=== PATIENT | female | born 1970 | race Caucasian/White ===

== ENCOUNTER 2023-04-15 10:07 | Outpatient (AMB) | payer MEDICARE, MEDICAID, SELFPAY ==
[2023-04-15 10:08] VITALS: BMI 34.4
--- NOTE | 2023-04-15 10:08 | MHC.PC.OV ---
Vital Signs 04/15/23 10:08 Height 6 ft 1 in Weight 261 lb BMI 34.4 Intake Visit Reasons: New Patient, Est Care Intake Note: Patient is here to establish care. Patient reports she would like a referral to some one to help her breathe better. Patient reports she was seen at [facility] about 2-3 weeks ago for the breathing concern. Patient would like a refill for Wellbutrin and Ventolin. Mds Nurse Required: No Accompanied by: Self / Same As Patient Allergies No Known Allergies Allergy (Verified 04/15/23 10:14) Tobacco use date assessed: 04/15/23 Dental Screening Dental Screen Date: 04/15/23 Did you have a dental visit in the last 12 months?: No Did you have a dental problem in the last 6 months where you did not have access to dental care?: No Was dental information given to patient?: Patient has dentist HPI New Patient, Est Care HPI Details New?patient Prior?PCP: Last?office?visit/CPE: Dr Forman Acute?issue(s): 2-3 yrs ago Recently?presented?to[facility]a?few?weeks?ago?with?agitation?alternated?with?nodding?off?and?had?complaints?of?difficulty?breathing?and?whole-body?pain. Urine was positive for cocaine but no other substances at that time. CT was Neg for PE. ED planned to admit pt but she wanted to go home. Pulm Nodules seen on CT scan in ED. SOB PMHx: Asthma, History?of?IV?drug?use,?on?methadone, hepatitis?C-treated,?cirrhosis?of?the?liver,?thrombocytopenia,?depression, PE & DVTs SurgHx: Hysterectomy, R ankle ORIF, GB, Appy. FHx: Mom: Ovarian CA. SocHx: 4 cigs/day, EtOH: none , h/o Cocaine & Opiod abuse PFSH Medical History (Updated 04/15/23 @ 11:14 by Catracho Pringle) Depression Night terrors, adult Anxiety Borderline personality disorder Asthma Cirrhosis of liver Surgical History (Updated 04/15/23 @ 10:23 by Melissa Michael [facility]) History of appendectomy History of ankle surgery History of cholecystectomy History of hysterectomy Family History (Updated 04/15/23 @ 10:24 by Melissa Michael [facility]) Mother Cancer Maternal Grandmother Cancer Maternal Aunt Cancer Social History (Updated 04/15/23 @ 10:27 by Melissa Michael [facility]) Household Members: Spouse Housing: House Alcohol intake: former Patient Tobacco Use Status: Current everyday Tobacco user Tobacco use type: Cigarette Cigarettes Per Day: 4 Years Smoked: 40 e-Cigarette/Vaping Use: Never Used Substance Use Type: Marijuana service: No Current occupational status: disabled Current occupation: Borderline personality disorder Current occupational exposures/hazards: No Sexual orientation: Unable to collect Gender identity: Unable to collect Cognitive needs: No Hearing needs: No Vision needs: Yes (wears contacts) Questionnaire PHQ-9 Over the last 2 weeks, how often have you been bothered by any of the following problems? 1. Little interest or pleasure in doing things: nearly every day 2. Feeling down, depressed, or hopeless: nearly every day 3. Trouble falling or staying asleep, or sleeping too much: nearly every day 4. Feeling tired or having little energy: nearly every day 5. Poor appetite or overeating: nearly every day 6. Feeling bad about yourself - or that you are a failure or have let yourself or your family down: nearly every day 7. Trouble concentrating on things, such as reading the newspaper or watching television: nearly every day 8. Moving or speaking so slowly that other people could have noticed. Or the opposite - being so fidgety or restless that you have been moving around a lot more than usual: nearly every day 9. Thoughts that you would be better off or of hurting yourself in some way: not at all ( No thoughts of suicide but no regard for whether or not I live. ) Total score: 24 Depression Screening Interpretation: Positive Depression Screening Follow-up: In treatment Depression Screening Done: Yes 65898 - PHQ-9 Billing: Yes Source: Developed by Drs. Martin Rubio, Larissa Figueroa, Rajan Howard and colleagues, with an educational grover from [employer]. Thrive Questionnaire Date Thrive assessed: 04/15/23 I am a: Patient What is your living situation today?: I have a steady place to live Within the past 12 months, did the food you bought not last and you didn't have the money to get more?: Never true Within the past 12 months, did you worry whether your food would run out before you got money to buy more?: Never true Do you have trouble paying for medicines?: No Do you have trouble getting transportation to medical appointments?: No Do you have trouble paying your heating and electricity bill?: No Do you have trouble taking care of your child, family member or friend?: No Do you have trouble with day-to-day activities such as bathing, preparing meals, shopping, managing finances, etc.?: No Are you currently unemployed and looking for a job?: No Are you interested in more education?: No Please select the resources that you would like help with: None Currently or been in a relationship where the following occur: no concerns reported AUDIT C Alcohol Use Questionnaire (AUDIT-C) 1. How often do you have a drink containing alcohol?: Never 3. How often do you have six or more drinks on one occasion?: Never Total Score: 0 SHILA-7 AMB Questionnaire SHILA-7 Date SHILA - 7 assessed: 04/15/23 Feeling nervous, anxious, or on edge: 3 = Nearly every day Not being able to stop or control worryin = Nearly every day Worrying too much about different things: 3 = Nearly every day Trouble relaxin = Nearly every day Being so restless that it is hard to sit still: 3 = Nearly every day Becoming easily annoyed or irritable: 3 = Nearly every day Feeling afraid as if something awful might happen: 3 = Nearly every day Total SHILA-7 score (0-4 normal; 5-9 mild; 10-14 moderate; 15-21 severe): 21 Source: Developed by Drs. Martin Rubio, Larissa Figueroa, Rajan Howard and colleagues, with an educational grover from [employer]. SHILA-7 Assessment Billing SHILA-7 Assessment Tool: SHILA-7 Assessment 32115 ACT Questionnaire In the past 4 weeks, how much of the time did your asthma keep you from getting as much done at work, school or at home?: All of the time During the past 4 weeks, how often have you had shortness of breath?: More than once a day During the past 4 weeks, how often did your asthma symptoms wake you up at night or earlier than usual in the morning?: 4 or more nights a week During the past 4 weeks, how often have you had to use your rescue inhaler or nebulizer medication?: More than 3 times per day How would you rate your asthma control during the past 4 weeks?: Not controlled at all ACT Interpretation: Positive Score: 5 Review of Systems Const Reports fatigue, Denies headache(s) and Denies weakness ENT Denies dizziness and Denies headache(s) Card Denies chest pain, Denies lightheadedness, Denies dyspnea and Denies other (Palpitations) Resp Denies cough, Denies dyspnea, Denies wheezing and Denies other ( shortness of breath) Musc Denies numbness and Denies tingling Neuro Denies dizziness, Denies headache(s), Denies numbness, Denies tingling, Denies paresthesias and Denies weakness Psych Denies anxiety and Denies depression Endo Reports fatigue Aller/Immun Denies wheezing Physical exam (Primary Care) BMI result Body Mass Index 34.4 Tobacco/Smoking Status: Tobacco use Status Tobacco use date assessed 04/15/23 04/15/23 10:35 Patient Tobacco Use Status Current everyday Tobacco 04/15/23 10:35 Tobacco use type Cigarette 04/15/23 10:35 e-Cigarette/Vaping Use Never Used 04/15/23 10:35 PHQ-9: PHQ-9 Score PHQ-9: Total score 24 04/15/23 10:50 Depression Screening Interpretation: Positive Depression Screening Follow-up: In treatment Thrive Assessment: Date of Thrive Assessment Date Thrive assessed 04/15/23 04/15/23 10:35 Currently or been in a relationship where the following occur: no concerns reported Const General: no acute distress and well developed Nutritional Appearance: well nourished Orientation/consciousness: patient oriented x3 HENMT Head: Yes normocephalic and Yes atraumatic Eyes General: appearance normal, both eyes and all related structures Pupils: Equal, round and reactive pupils present EOM: EOMs intact bilaterally Resp Other: Coarse breath sounds Effort & Inspection: normal respiratory effort Auscultation: clear to auscultation bilaterally Cardio Rate: regular rate Rhythm: regular rhythm Heart sounds: S1 normal heart sound present, S2 normal heart sound present, no gallops, no murmurs and no rubs Neuro General: patient oriented x3 and gait normal Cranial nerves: Yes Equal, round and reactive pupils present Psych Affect: normal affect Assessment and Plan Assessment & Plan (1) Shortness of breath: Code(s): R06.02 - Shortness of breath Plan: Shortness?of?breath?in?a?patient?with?numerous?pulmonary?complications?including?history?of?PE,?pulmonary?nodules,?smoking?and?asthma. Referred?to?Pulmonary?Medicine Refilled?albuterol Added?Flovent History?of?cocaine?insufflation?and?I?advised?against?this?as?this?could?exacerbate?symptoms?of?asthma (2) History of pulmonary embolism: Code(s): Z86.711 - Personal history of pulmonary embolism Plan: Recent?CT?scan?did?not?demonstrate?any?pulmonary?emboli Patient?says?she?only?discontinued?taking?Eliquis?because?she?no?longer?had?a?primary?care?physician?and?ran?out?of?medication. Will?restart?Eliquis Referred?to?pulmonology?and?also?to?Hematology-Oncology?to?discuss?whether?patient?needs?to?continue?Eliquis.??She?also?has?thrombocytopenia. (3) Pulmonary nodules: Code(s): R91.8 - Other nonspecific abnormal finding of lung field Plan: As?above,?referred?to?pulmonology Advised?she?continue?to?wean?down?smoking. (4) Fatigue: Code(s): R53.83 - Other fatigue Plan: Unclear?cause?but?likely?multifactorial. Checking?labs Will?try?to?optimize?respiratory?function (5) History of intravenous drug abuse: Code(s): F19.11 - Other psychoactive substance abuse, in remission Plan: Currently?on?methadone (6) History of hepatitis C: Code(s): Z86.19 - Personal history of other infectious and parasitic diseases Plan: History?of?hepatitis?C?which?has?been?treated She?does?have?cirrhosis?and?mild?liver?elevations Repeat?hep?C?labs?and?liver?labs. (7) Thrombocytopenia: Code(s): D69.6 - Thrombocytopenia, unspecified Plan: Check?CBC Patient?is?referred?to?Hematology-Oncology (8) Cirrhosis of liver: Comment: Per patient due to Tylenol intake, patient reports she does not drink Code(s): K74.60 - Unspecified cirrhosis of liver Plan: Patient?denies?drinking High?Tylenol?use?in?the?past?and?history?of?hepatitis-C (9) Hip pain: Code(s): M25.559 - Pain in unspecified hip Plan: Left?hip?pain Check?x-ray Start?physical?therapy May?need?referral (10) Depression: Code(s): F32.A - Depression, unspecified Plan: In?treatment?and?we?will?follow-up?with?patient (11) Smoker: Code(s): F17.200 - Nicotine dependence, unspecified, uncomplicated Plan: Encouraged?weaning?and?cessation (12) History of DVT (deep vein thrombosis): Code(s): Z86.718 - Personal history of other venous thrombosis and embolism Plan: As?above,?she?is?referred?to?Hematology-Oncology?and?I?have?resumed?her?Eliquis (13) Asthma: Code(s): J45.909 - Unspecified asthma, uncomplicated Plan: Continue?Ventolin,?start?Flovent,?quit?smoking,?referred?to?pulmonology Orders: Orders Complete Blood Count Auto Diff Today Z00.00 - Encounter for general adult medical examination without abnormal findings TSH reflex Free T4 Today Z00.00 - Encounter for general adult medical examination without abnormal findings Vitamin B12 and Folate Today E53.8 - Deficiency of other specified B group vitamins Vitamin D 25-OH Total Today E55.9 - Vitamin D deficiency, unspecified Comprehensive [place]. Panel Fast Today Z00.00 - Encounter for general adult medical examination without abnormal findings Lipid Panel Today Z00.00 - Encounter for general adult medical examination without abnormal findings Microalbumin, Random (w Creat) Today I10 - Essential (primary) hypertension UA and rflx microscopic Today Z00.00 - Encounter for general adult medical examination without abnormal findings Hepatitis B,C Profile Today Z11.3 - Encounter for screening for infections with a predominantly sexual mode of transmission T Spot TB Today Z11.1 - Encounter for screening for respiratory tuberculosis XR hip LT min 2V Today M25.559 - Pain in unspecified hip PT Evaluation and Treatment Today M25.559 - Pain in unspecified hip Referrals Pulmonary Medicine Referral F19.11 - Other psychoactive substance abuse, in remission, J45.909 - Unspecified asthma, uncomplicated, R06.02 - Shortness of breath, R91.8 - Other nonspecific abnormal finding of lung field, Z86.711 - Personal history of pulmonary embolism, Z86.718 - Personal history of other venous thrombosis and embolism Hematology & Oncology Referral D69.6 - Thrombocytopenia, unspecified, F17.200 - Nicotine dependence, unspecified, uncomplicated, Z86.711 - Personal history of pulmonary embolism, Z86.718 - Personal history of other venous thrombosis and embolism Medications: New albuterol sulfate 90 mcg/actuation (Ventolin HFA) 2 puffs inhalation Q4-6H 30 days PRN 8.5 grams 3RF shortness of breath or wheezing bupropion HCl (Wellbutrin XL) 300 mg PO QAM 30 days 30 tabs 2RF apixaban (Eliquis) 2.5 mg PO BID 90 days 180 tabs 2RF Z86.711 - Personal history of pulmonary embolism, Z86.718 - Personal history of other venous thrombosis and embolism fluticasone propionate 110 mcg/actuation (Flovent HFA) 1 puff inhalation Q12H 30 days 12 grams 3RF Coding Level of Care Code New Pt Level 4 (27416) Diagnoses Shortness of breath R06.02 History of pulmonary embolism Z86.711 Pulmonary nodules R91.8 Fatigue R53.83 History of intravenous drug abuse F19.11 History of hepatitis C Z86.19 Thrombocytopenia D69.6 Cirrhosis of liver K74.60 Hip pain M25.559 Depression F32.A Smoker F17.200 History of DVT (deep vein thrombosis) Z86.718 Asthma J45.909 Additional Codes SHILA-7 Assessment Billing - SHILA-7 Assessment Tool: SHILA-7 Assessment 26962 ([id number])
== END 2023-04-15 11:21 | disposition home or self-care (01) ==
PROVIDERS: PCP Nurse Practitioner Family; Visit Provider Family Medicine
DX: F32.A Depression, unspecified (principal); F19.11 Other psychoactive substance abuse, in remission
CPT/HCPCS: 96127; 99204

== ENCOUNTER 2024-04-09 12:18 | Outpatient (AMB) | payer MEDICARE, MEDICAID, SELFPAY ==
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
[2024-04-09 12:28] VITALS: BP 132/78; PULSE 80; RESP 20; TEMP 36.7; O2SAT 99; BMI 31.4
== END 2024-04-09 13:00 | disposition home or self-care (01) ==
PROVIDERS: PCP Nurse Practitioner Family; Visit Provider Nurse Practitioner Family
DX: F41.9 Anxiety disorder, unspecified (principal); F32.A Depression, unspecified; R53.83 Other fatigue; J45.909 Unspecified asthma, uncomplicated

== ENCOUNTER → 2024-04-09 12:18 | Outpatient (BNVA) | payer MEDICARE, MEDICAID, SELFPAY | PROVIDERS: PCP Nurse Practitioner Family; Visit Provider Nurse Practitioner Family | DX: F41.9 Anxiety disorder, unspecified (principal); F32.A Depression, unspecified; R53.83 Other fatigue; J45.909 Unspecified asthma, uncomplicated | CPT/HCPCS: 96127; 96160; 99212 ==

== ENCOUNTER 2024-04-10 14:09 | Outpatient (REF) | payer MEDICARE, MEDICAID, SELFPAY ==
[2024-04-10 18:08] LABS: Basophils Percent Auto 0.9 % (0-2); Eosinophils Absolute Auto 0.1 X10*3/uL (0.0-0.4); Eosinophils Percent Auto 3.3 % (0-4); Hematocrit 36.8 % (37.0-47.0); Hemoglobin 12.4 g/dl (12.0-16.0); Imm Gran Abs Auto 0.01 X10*3/uL (0.00-0.03); Imm Gran Pct Auto 0.5 % (0.0-0.4); Lymphocytes Absolute Auto 0.3 X10*3/uL (1.2-4.9); Lymphocytes Percent Auto 13.6 % (20-40); MANUAL DIFF FLAG SCAN; Mean Corpuscular HGB Conc 33.7 g/dl (31.0-35.0); Mean Corpuscular Hemoglobin 29.7 pg (27.0-33.0); Mean Corpuscular Volume 88.2 fL (80.0-98.0); Mean Platelet Volume 11.7 fL (9.4-12.3); Monocytes Absolute Auto 0.2 X10*3/uL (0.1-1.2); Neutrophils Absolute Auto 1.6 x10*3/uL (2.0-8.3); Neutrophils Percent Auto 74.7 % (45-73); Red Blood Count 4.17 X10*6/uL (4.20-5.50); Red Cell Distribution Width 15.1 % (11.0-16.0); SCAN SMEAR FLAG 1
[2024-04-10 18:11] LABS: Appearance Urine Clear; Color Urine Yellow; Glucose Urine UA Negative (Negative); Leukocyte Esterase Urine Trace (Negative); Nitrite Urine Negative (Negative); PH 6.5 (5.0-9.0); UMIC TRIGGER UA YES; Urine Blood Negative (Negative); Urine Ketones Negative (Negative); Urine Protein Negative (Neg-Trace)
[2024-04-10 18:16] LABS: Bacteria Urine None Seen (None Seen); Hyaline Casts Urine 0-2 /LPF (0-2); RBC Urine 0-2 /HPF (0-2); Squamous Epithelial Cell Urine 0-2 /HPF (0-2); WBC Urine 0-5 /HPF (0-5)
[2024-04-10 18:22] LABS: Alanine Aminotransferase 31 U/L (0-31); Albumin Level 3.8 g/dL (3.5-5.0); Alkaline Phosphatase 151 U/L (39-117); Anion Gap 13 (12-20); Aspartate Amino Transferase 36 U/L (5-31); Bilirubin Total 0.5 mg/dL (0.0-1.0); Blood Urea Nitrogen 11 mg/dL (9-16); Calcium 9.5 mg/dL (8.4-10.2); Carbon Dioxide 23 mmol/L (22-29); Chloride 107 mmol/L (96-108); Cholesterol 151 mg/dL (<200); Estimated Glomerular Filt Rate > 60; Glucose Fasting 98 mg/dL (60-99); HDL Cholesterol 45 mg/dL (>40); LDL Cholesterol Calculated 87 mg/dL (<100); Potassium 4.2 mmol/L (3.3-5.1); Sodium 139 mmol/L (135-145); Total Protein 7.4 g/dL (6.5-8.0); Triglycerides 98 mg/dL (<150)
[2024-04-10 18:30] LABS: Platelet Count 70 X10*3/uL (160-400); SLIDE REVIEW VERIFIED; White Blood Count 2.1 X10*3/uL (4.8-10.8)
[2024-04-10 18:41] LABS: TSH reflex Free T4 4.08 uIU/mL (0.32-4.0); Vitamin D 25-OH Total 9.6 ng/mL (>30)
[2024-04-10 18:50] LABS: Folate 7.4 ng/mL (> or = 4.0); Vitamin B12 342 pg/mL (200-900)
[2024-04-10 19:19] LABS: Creatinine Urine 48.63 mg/dL; Microalbumin Urine < 5.0 mg/L
[2024-04-11 08:10] LABS: HBS Num1 0.25 mIU/mL (0-7.99); HBc Num1 0.11 S/CO (0.00-0.79); HBsAGNum1 0.29 S/CO (0.00-0.99); Hepatitis B Core Antibody Nonreactive (Nonreactive); Hepatitis B Surface Antigen Negative (Negative); ~HepC Num1 14.71 S/CO (0.00-0.79); ~Hepatitis B Surface Antibody NONREACTIVE (Nonreactive); ~Hepatitis C Antibody Reactive (Nonreactive)
[2024-04-13 21:44] LABS: TS Negative Control Passed; TS Panel A 0; TS Panel B 0; TS Positive Control Passed; TSpotTB Negative (Negative)
== END 2024-04-10 14:10 | disposition home or self-care (01) ==
LOC: HO.WFDLDS 14:09
PROVIDERS: Visit Provider Family Medicine
DX: Z00.00 Encounter for general adult medical examination without abnormal findings (principal); E53.8 Deficiency of other specified B group vitamins; Z11.1 Encounter for screening for respiratory tuberculosis; E55.9 Vitamin D deficiency, unspecified; I10 Essential (primary) hypertension; Z11.3 Encounter for screening for infections with a predominantly sexual mode of transmission
CPT/HCPCS: 36415; 80053; 80061; 81001; 82043; 82306; 82570; 82607; 82746; 84439; 84443; 85025; 86481; 86704; 86706; 86803; 87340

== ENCOUNTER 2024-04-12 08:04 | Outpatient (AMB) | payer MEDICARE, MEDICAID, SELFPAY ==
--- NOTE | 2024-04-12 08:11 | A.OFFPC_ITS ---
Vital Signs 04/12/24 08:17 Height 6 ft 1 in Weight 242 lb 8 oz BMI 32.0 BP 120/68 Blood Pressure Location Rt brachial Position Sitting Respiration 16 Pulse 72 Pulse Source Pulse Oximeter Temp 97.8 F Temp Source Oral Pulse Oximetry (%) 97 Oxygen Delivery Method Room Air Intake Visit Reasons: follow-up labs and health maintenance Intake Note: patient here to for follow-up and health maintenance Hide Grader Required: No Is last menstrual period known: No Post menopausal: No Patient : No Allergies No Known Allergies Allergy (Verified 04/12/24 08:38) Medication List - Last Reconciled 04/12/24 by Yue Mena, BRAZE OPERATOR- albuterol sulfate 90 mcg/actuation (Ventolin HFA) 2 puffs inhalation Q4-6H PRN 30 days apixaban (Eliquis) 2.5 mg PO BID 90 days bupropion HCl XL (Wellbutrin XL) 300 mg PO QAM 30 days methadone 100 mg PO 6XD Tobacco use date assessed: 04/12/24 Dental Screening Dental Screen Date: 04/12/24 Did you have a dental visit in the last 12 months?: No Did you have a dental problem in the last 6 months where you did not have access to dental care?: No Was dental information given to patient?: Patient has dentist HPI HPI Comments History of Present Illness Details 53-year-old female with generalized anxi ety disorder, major depressive disorder, history of DVT, history of pulmonary embolism, secondary h ypercoaguable state, pulmonary nodules, cirrhosis of the liver, thrombocytopenia, history of hepatitis-C, history of IV drug abuse, borderline personality disorder, former smoker 35 pack year/hx, COPD Health Maintenance: ? Colon denies family hx of colon ca, will do cologaurd ordered today ? Mammo ordered today ? DEXA have had one, ordered today ? PAP s/p MINE ? Tdap today Flu - declined Specialists: Referred to ID today Rerred to Heme today Patient of Dr. Clark on here today for complete physical exam. Advised her to call [facility] services to vy for ADDICTION NURSE , needs help in home with ADLs Referred today for Lung Ca screening today Needs updated order for L hip xray; this is for pain; order . Renewed today. Was referred to Heme at [facility] in the past, did not make appt, interested today, new referral placed. Labs reviewed as below. Vit d def, start Vit d supplement. Mild elevation in TSH and decrease in T4, other than trouble losing weight does not have any overt sx. c/o feet feeling freezing cold all of the time, worse on the R side. No open areas. Plan Repeat tsh, t4 and vit d labs in 3 months. Tdap today Check Duplex US See additional orders below FU with PCP in about 4 weeks to f/u on chronic dz mgmt, sooner PRN This note is constructed using voice recognition software. While every effort has been made to ensure accuracy in stull installer, still errors may have been included Sometimes, these errors may affect the content or meaning of the given sentence . . An additional 20 minutes was spent add ressing the problem(s) noted at todays visit. This includes time spent before the visit reviewing the chart, time spent during the visit, and time spent after the visit on documentation [facility] Medical History (Updated 04/12/24 @ 10:02 by Yue Mena [facility]) Depression Night terrors, adult Anxiety Borderline personality disorder Asthma Cirrhosis of liver Surgical History (Updated 04/15/23 @ 10:23 by Melissa Michael [facility]) History of appendectomy History of ankle surgery History of cholecystectomy History of hysterectomy Family History (Updated 04/15/23 @ 10:24 by Melissa Michael CMA) Mother Cancer Maternal Grandmother Cancer Maternal Aunt Cancer Social History (Updated 04/15/23 @ 10:27 by Melissa Michael [facility]) Household Members: Spouse Housing: House Alcohol intake: former Patient Tobacco Use Status: Current everyday Tobacco user Tobacco use type: Cigarette Cigarettes Per Day: 4 Years Smoked: 40 e-Cigarette/Vaping Use: Never Used Substance Use Type: Marijuana service: No Current occupational status: disabled Current occupation: Borderline personality disorder Current occupational exposures/hazards: No Sexual orientation: Unable to collect Gender identity: Unable to collect Cognitive needs: No Hearing needs: No Vision needs: Yes (wears contacts) Questionnaire Thrive Questionnaire Date Thrive assessed: 04/09/24 I am a: Patient What is your living situation today?: I have a steady place to live Within the past 12 months, did the food you bought not last and you didn't have the money to get more?: Often true Within the past 12 months, did you worry whether your food would run out before you got money to buy more?: Often true Do you have trouble paying for medicines?: Yes Do you have trouble getting transportation to medical appointments?: Yes Do you have trouble paying your heating and electricity bill?: Yes Do you have trouble taking care of your child, family member or friend?: Yes Do you have trouble with day-to-day activities such as bathing, preparing meals, shopping, managing finances, etc.?: Yes Are you currently unemployed and looking for a job?: No Are you interested in more education?: No THRIVE Score: 4 SHILA-7 AMB Questionnaire SHILA-7 Date SHILA - 7 assessed: 04/09/24 Source: Developed by Drs. Martin Rubio, Larissa Figueroa, Rajan Howard and colleagues, with an educational grover from 60mo. Physical exam (Primary Care) Vital Signs: Last Vital Signs Temp 97.8 F 04/12/24 08:17 Pulse 72 04/12/24 08:17 Resp 16 04/12/24 08:17 BP 120/68 04/12/24 08:17 Pulse Ox 97 04/12/24 08:17 Oxygen Delivery Method Room Air 04/12/24 08:17 BMI result Body Mass Index 32.0 BMI Assessment/Plan discussion: High BMI High, discussed plan: lifestyle Tobacco/Smoking Status: Tobacco use Status Tobacco use date assessed 04/12/24 04/12/24 08:20 Patient Tobacco Use Status Current everyday Tobacco 04/12/24 08:12 Tobacco use type Cigarette 04/12/24 08:12 e-Cigarette/Vaping Use Never Used 04/12/24 08:12 Are you ready to quit: Yes Tobacco cessation counseling provided: Yes Items discussed: Nicotine replacement, QuitWorks and Other Relapse Prevention: discussed the importance of a supportive environment, discussed extending NRT, discussed negative mood or depression after quitting, weight gain after smoking is common and discussed dietary, exercise and/or lifestyle changes Number of minutes spent counselin CPT code: 71070 - 4-10 Minutes (recently quit 02/2024 ) Thrive Assessment: Date of Thrive Assessment Date Thrive assessed 04/09/24 04/12/24 08:12 Const Other: General: Well developed, well nourished, in no acute distress. Appears older than stated ag; chronically ill Head: Normocephalic, atraumatic. Eyes: Pupils are equal, round and reactive to light and accommodation. Conjunctivae are clear. Vision grossly normal. Ears: TMs clear AU, EACS WNL Nose: Patent, without discharge. Mouth: There are no ulcers or lesions noted. No inflammation, no post nasal drip, no plaques nor exudates. Neck: Supple, no adenopathy or thyromegaly. Lungs: Clear to auscultation bilaterally. No rales, rhonchi or wheeze noted. Good air flow in all romero. Heart: Regular rate and rhythm. No murmurs, click, rubs or gallops are noted. Abdomen: Bowel sounds present in all quadrants. The abdomen is soft, nontender, + hepatomegaly, nontender. Musculoskeletal: Slow gait, uses cane Pulses: Peripheral pulses decreased bilat, hairless lower ext, skin intact Extremities: No clubbing, cyanosis nor edema is noted. Neurologic: . Cranial Nerves 2-12 intact. Skin: No rashes, ulcers, or lesions noted. Turgor is good. Skin color is good. Hair and nails are without abnormalities. Psych: Normal eye contact, affect and mood appropriate, and normal interactions. Patient is alert and appropriate to context. Immunizations Boostrix Tdap 2.5 Lf unit-8 mcg-5 Lf/0.5 mL intramuscular syringe Performing Provider: SALLY Oliavs Performing Location: [facility] Family Medicine Administered by: Silvia Camargo RN on 04/12/24 09:08 Dose Route Admin Location Dispensed Lot Number Expiration Date [facility] Dope Pourer 0.5 mL IM Right Deltoid 0.5 mL [id number] 02/24/25 [id number] [employer] VIS Given Date VIS Provided VIS Publication Date 04/12/24 Single Vaccine 21 Eligibility Eligibility Date Funding Source Not [facility] Eligible 04/12/24 Private Results Reviewed Results Reviewed: RUN: 04/12/24 0815 PAGE 1 [facility] [address] [place] [phone] Balance Clerk: Ernesto Keenan M.D. Specimen Inquiry Name: Francisco Cuevas Age/Sex: 53/F : 1970 Unit#: [id number] Attend Dr: Ernesto Clark MD Re04/10/24 Status: DEP REF Location: [facility] Disch: SPEC : [id number] LANEY: 04/10/24 STATUS: COMP REQ : [id number] RECD: 04/10/[address] [facility] [address]: Ernesto Clark MD COMP: 04/10/24 ENTERED: 04/10/[address] [facility] [address]: ORDERED: CBC Auto Diff, SLIDE REVIEW Test Result Flag Reference WBC 2.1 L 4.8-10.8 X10*3/uL RBC 4.17 L 4.20-5.50 X10*6/uL HGB 12.4 12.0-16.0 g/dl HCT 36.8 L 37.0-47.0 % MCV 88.2 80.0-98.0 fL MCH 29.7 27.0-33.0 pg MCHC 33.7 31.0-35.0 g/dl RDW 15.1 11.0-16.0 % PLT 70 L 160-400 X10*3/uL MPV 11.7 9.4-12.3 fL Neut Pct Auto 74.7 H 45-73 % ImGran Pct Auto 0.5 H 0.0-0.4 % Lymp Pct Auto 13.6 L 20-40 % [place] Pct Auto 7.0 2-11 % Eos Pct Auto 3.3 0-4 % Baso Pct Auto 0.9 0-2 % NRBC Pct Auto 0.0 0.0-0.2 /100WBC ANC Neut Abs # 1.6 L 2.0-8.3 x10*3/uL ImGran Abs Auto 0.01 0.00-0.03 X10*3/uL Lymph Abs Auto 0.3 L 1.2-4.9 X10*3/uL [place] Abs Auto 0.2 0.1-1.2 X10*3/uL Eos Abs Auto 0.1 0.0-0.4 X10*3/uL Baso Abs Auto 0.0 0.0-0.2 X10*3/uL NRBC Abs Auto 0.000 0.0-0.012 X10*3/uL SLIDE REVIEW VERIFIED RUN: 04/12/24 0816 PAGE 1 [facility] [address] [place] [phone] Balance Clerk: Ernesto Keenan M.D. Specimen Inquiry Name: Francisco Cuevas Age/Sex: 53/F : 1970 Unit#: [id number] Attend Dr: Ernesto Clark MD Re04/10/24 Status: DEP REF Location: [facility] Disch: SPEC : [id number] LANEY: 04/10/24 STATUS: COMP REQ : [id number] RECD: 04/10/[address]: Ernesto Clark MD COMP: 04/10/24 ENTERED: 04/10/24-[address] [facility] [address]: ORDERED: CMP Fast, Lipid Panel, Vitamin D 25-OH, Free T4, TSH Rflx Test Result Flag Reference Sodium 139 135-145 mmol/L Potassium 4.2 3.3-5.1 mmol/L CL 107 96-108 mmol/L CO2 23 22-29 mmol/L Gap 13 12-20 BUN 11 9-16 mg/dL Creat 0.71 0.5-1.4 mg/dL eGFR > 60 Chronic Kidney Disease: Estimated GFR < 60 mL/min/1.73m2 Severe Kidney Disease: Estimated GFR < 15 mL/min/1.73m2 FBS 98 60-99 mg/dL CA 9.5 8.4-10.2 mg/dL Total Bili 0.5 0.0-1.0 mg/dL AST (GOT) 36 H 5-31 U/L ALT (GPT) 31 0-31 U/L Protein, Total 7.4 6.5-8.0 g/dL Alb 3.8 3.5-5.0 g/dL Triglyceride 98 <150 mg/dL Desirable Triglyceride: less than 150 mg/dL Borderline High Triglyceride 150-199 mg/dL High Triglyceride: 200-499 mg/dL Very High Triglyceride: greater than or equal to 5OO mg/dL Cholesterol 151 <200 mg/dL Desirable Cholesterol: less than 200 mg/dL Borderline High Cholesterol: 200-239 mg/dL High Cholesterol: greater than 239 mg/dL LDL Calculated 87 <100 mg/dL Desirable LDL: less than 100 mg/dL Near Optimal/Above Optimal LDL: 110-129 mg/dL Borderline High LDL: 130-159 mg/dL High LDL: 160-189 mg/dL Very High LDL: greater than or equal to 190 mg/dL HDL 45 >40 mg/dL Desirable HDL: greater than 40 mg/dL Note: This HDL assay may give artificially low results in patients with liver disease. Alk Phos 151 H 39-117 U/L Vit D 25-OH Tot 9.6 L >30 ng/mL Health Based Reference Values* < 20 ng/mL Deficient 20-30 ng/mL Insufficient > 30 ng/mL Sufficient *Nicolas SUAREZ. N Engl J Med. 2007;357:266-280 Care must be taken in interpreting Vitamin D results from different laboratories and methodologies. Published data demonstrated that results from patients undergoing hemodialysis may show a negative bias when tested with various automated 25-OH vitamin D assays when compared to LC-MS/MS. When testing samples from patients whose predominant form of Vitamin D is Vitamin D2, such as patients receiving Vitamin D2 supplementation, results that are subtherapeutic should be confirmed with another method such as LC-MS/MS. Free T4 0.70 L 0.71-1.85 ng/dL TSH 4.08 H 0.32-4.0 uIU/mL END OF REPORT RUN: 04/12/24 0816 PAGE 1 [facility] [address] [place] [phone] Balance Clerk: Ernesto Keenan M.D. Specimen Inquiry Name: Francisco Cuevas Age/Sex: 53/F : 1970 Unit#: [id number] Attend Dr: Ernesto Clark MD Re04/10/24 Status: DEP REF Location: [facility] Disch: SPEC : [id number] LANEY: 04/10/24 STATUS: COMP REQ : [id number] RECD: 04/10/[address]: Ernesto Clark MD COMP: 04/10/24 ENTERED: 04/10/[address]: ORDERED: UA and Micros Test Result Flag Reference Ur Color Yellow Ur Appear Clear PH 6.5 5.0-9.0 Ur Glu Negative Negative mg/dL Urine Blood Negative Negative Spec [place] Ur 1.010 1.005-1.025 Urine Protein Negative Neg-Trace mg/dL Urine Ketones Negative Negative mg/dL Ur Nitrite Negative Negative Ur Antonio Esterase Trace H Negative Ur RBC 0-2 0-2 /HPF Ur WBC 0-5 0-5 /HPF Ur Squam Epi 0-2 0-2 /HPF Ur Bact None Seen None Seen Ur Hyaline Senior Program Manager 0-2 0-2 /LPF END OF REPORT END OF REPORT RUN: 04/12/24 0816 PAGE 1 [facility] [address] [place] [phone] Balance Clerk: Ernesto Keenan M.D. Specimen Inquiry Name: Francisco Cuevas Age/Sex: 53/F : 1970 Unit#: [id number] Attend Dr: Ernesto Clark MD Re04/10/24 Status: DEP REF Location: [facility] Disch: SPEC : [id number] LANEY: 04/10/24 STATUS: COMP REQ : [id number] RECD: 04/10/24-[address]: Ernesto Clark MD COMP: 04/11/24 ENTERED: 04/10/24-[address]: ORDERED: HEPBC Test Result Flag Reference Anti-HBS NONREACTIVE Nonreactive Nonreactive: < 8.00 mIU/mL Anti-HBc Nonreactive Nonreactive Anti-HCV Reactive H Nonreactive Presumptive evidence of antibodies to HCV. HBsAG Negative Negative END OF REPORT Coding Level of Care Code Est Pt Level 3 (95354) Est Pt Prev Care 40-64y(72188) Diagnoses Secondary hypercoagulability disorder D68.69 Other cirrhosis of liver K74.69 Hepatic cirrhosis type: other cirrhosis Thrombocytopenia D69.6 History of intravenous drug abuse F19.11 Tobacco dependence F17.200 History of hepatitis C Z86.19 History of pulmonary embolism Z86.711 History of DVT (deep vein thrombosis) Z86.718 Left hip pain M25.552 Elevated TSH R79.89 Vitamin D deficiency E55.9 Decreased pulses in feet R09.89 Need for Tdap vaccination Z23 Influenza vaccination declined Z28.21 BMI 32.0-32.9,adult Z68.32 Class 1 obesity due to excess calories with serious comorbidity and body mass index (BMI) of 32.0 to 32.9 in adult E66.811; E66.09; Z68.32 Obesity type: due to excess calories Pulmonary nodules R91.8 Moderate episode of recurrent major depressive disorder F33.1 Major depression episode severity: moderate SHILA (generalized anxiety disorder) F41.1 Borderline personality disorder F60.3 Simple chronic bronchitis J41.0 COPD type: chronic bronchitis Chronic bronchitis type: simple Additional Codes Vital Signs *Quality* - CPT code: 42705 - 4-10 Minutes ([id number]) Assessment & Plan Assessment & Plan (1) Secondary hypercoagulability disorder: Comment: on eliquis, hx of DVT and PE Code(s): D68.69 - Other thrombophilia Category: Medical Plan: . (2) Cirrhosis of liver: Comment: Per patient due to Tylenol intake, patient reports she does not drink Code(s): K74.60 - Unspecified cirrhosis of liver Category: Medical Qualifiers: Hepatic cirrhosis type: other cirrhosis Qualified Code(s): K74.69 - Other cirrhosis of liver Plan: . (3) Thrombocytopenia: Code(s): D69.6 - Thrombocytopenia, unspecified Category: Medical Plan: . (4) History of intravenous drug abuse: Comment: in remission, on methadone Code(s): F19.11 - Other psychoactive substance abuse, in remission Category: Social Hx Plan: . (5) Tobacco dependence: Comment: recently quit 02/2024 35 pack year hx Code(s): F17.200 - Nicotine dependence, unspecified, uncomplicated Category: Medical Plan: . (6) History of hepatitis C: Code(s): Z86.19 - Personal history of other infectious and parasitic diseases Category: Medical Plan: . (7) History of pulmonary embolism: Comment: with secondary hypercoaguable state on eliquis Code(s): Z86.711 - Personal history of pulmonary embolism Category: Medical Plan: . (8) History of DVT (deep vein thrombosis): Comment: LLE with secondary hypercoaguable state on eliquis Code(s): Z86.718 - Personal history of other venous thrombosis and embolism Category: Medical Plan: . (9) Left hip pain: Code(s): M25.552 - Pain in left hip Category: Medical Plan: . (10) Elevated TSH: Code(s): R79.89 - Other specified abnormal findings of blood chemistry Category: Medical Plan: . (11) Vitamin D deficiency: Code(s): E55.9 - Vitamin D deficiency, unspecified Category: Medical Plan: . (12) Decreased pulses in feet: Comment: like PVD based on clinical exam Code(s): R09.89 - Other specified symptoms and signs involving the circulatory and respiratory systems Category: Medical Plan: . (13) Need for Tdap vaccination: Code(s): Z23 - Encounter for immunization Category: Medical Plan: . (14) Influenza vaccination declined: Code(s): Z28.21 - Immunization not carried out because of patient refusal Category: Medical (15) BMI 32.0-32.9,adult: Code(s): Z68.32 - Body mass index [BMI] 32.0-32.9, adult Category: Medical Plan: . (16) Class 1 obesity with serious comorbidity and body mass index (BMI) of 32.0 to 32.9 in adult: Comment: with cirrhosis and asthma Code(s): E66.811 - Obesity, class 1; Z68.32 - Body mass index [BMI] 32.0-32.9, adult Category: Medical Qualifiers: Obesity type: due to excess calories Qualified Code(s): E66.811 - Obesity, class 1; E66.09 - Other obesity due to excess calories; Z68.32 - Body mass index [BMI] 32.0-32.9, adult Plan: . (17) Pulmonary nodules: Code(s): R91.8 - Other nonspecific abnormal finding of lung field Category: Medical (18) MDD (major depressive disorder), recurrent episode: Code(s): F33.9 - Major depressive disorder, recurrent, unspecified Category: Medical Qualifiers: Major depression episode severity: moderate Qualified Code(s): F33.1 - Major depressive disorder, recurrent, moderate (19) SHILA (generalized anxiety disorder): Code(s): F41.1 - Generalized anxiety disorder Category: Medical (20) Borderline personality disorder: Code(s): F60.3 - Borderline personality disorder Category: Medical (21) COPD (chronic obstructive pulmonary disease): Comment: PRN SHMUEL only, controlled. Code(s): J44.9 - Chronic obstructive pulmonary disease, unspecified Category: Medical Qualifiers: COPD type: chronic bronchitis Chronic bronchitis type: simple Qualified Code(s): J41.0 - Simple chronic bronchitis Plan . Orders: Orders XR hip LT min 2V Today M25.552 - Pain in left hip TSH reflex Free T4 06/30/24 E55.9 - Vitamin D deficiency, unspecified, R79.89 - Other specified abnormal findings of blood chemistry Vitamin D 25-OH Total 06/30/24 E55.9 - Vitamin D deficiency, unspecified, R79.89 - Other specified abnormal findings of blood chemistry US venous duplex LE BI Today R09.89 - Other specified symptoms and signs involving the circulatory and respiratory systems XR DEXA axial skeleton Today Z13.820 - Encounter for screening for osteoporosis MM tomosynthesis screening BI Today Z12.31 - Encounter for screening mammogram for malignant neoplasm of breast TDaP Immunization Today Z23 - Encounter for immunization Referrals Lung Cancer Screening Referral F17.200 - Nicotine dependence, unspecified, uncomplicated Hematology & Oncology Referral D68.69 - Other thrombophilia, D69.6 - Thrombocytopenia, unspecified, Z86.711 - Personal history of pulmonary embolism, Z86.718 - Personal history of other venous thrombosis and embolism Cologuard Test Z12.11 - Encounter for screening for malignant neoplasm of colon, Z12.12 - Encounter for screening for malignant neoplasm of rectum Infectious Disease Referral F19.11 - Other psychoactive substance abuse, in remission, K74.60 - Unspecified cirrhosis of liver, Z86.19 - Personal history of other infectious and parasitic diseases Medications: New cholecalciferol (vitamin D3) 125 mcg PO DAILY 90 caps 2RF Patient Instructions: Health screenings for women You should visit your health care provider from time to time, even if you are healthy. The purpose of these visits is to: Screen for medical issues Assess your risk for future medical problems Encourage a healthy lifestyle Update vaccinations and other preventive care services Help you get to know your provider in case of an illness Information Even if you feel fine, you should still see your provider for regular checkups. These visits can help you avoid problems in the future. For example, the only way to find out if you have high blood pressure is to have it checked regularly. High blood sugar and high cholesterol levels also may not have any symptoms in the early stages. A simple blood test can check for these conditions. There are specific times when you should see your provider or receive specific health screenings. The [place] Preventive Services Task Force publishes a list of recommended screenings. Below are screening guidelines for women ages 18 to 39. BLOOD PRESSURE SCREENING Your blood pressure should be checked at least once every 3 to 5 years if: Your blood pressure is in the normal range (top number less than 120 mm Hg and bottom number less than 80 mm Hg) You don't have risk factors for high blood pressure Ask your provider if you need your blood pressure checked more often if: The top number is 120 to 129 mm Hg or the bottom number is 70 to 79 mm Hg You have diabetes, heart disease, kidney problems, are overweight, or have cer tain other health conditions You have a first-degree relative with high blood pressure You are Black You had high blood pressure during a If the top number is 130 mm Hg or greater or the bottom number is 80 mm Hg or greater, this is considered stage 1 hypertension. Schedule an appointment with your provider to learn how you can reduce your blood pressure. Watch for blood pressure screenings in your area. Ask your provider if you can stop in to have your blood pressure checked. BREAST CANCER SCREENING Experts do not agree about the benefits of breast self-exams in finding breast cancer or saving lives. Talk to your provider about what is best for you. A screening mammogram is not recommended for most women under age 40. Your provider may discuss and recommend mammograms, MRI scans, or ultrasounds if you have an increased risk for breast cancer, such as: A mother or sister who had breast cancer at a young age (most often starting screening earlier than the age the close relative was diagnosed) You carry a high-risk genetic marker CERVICAL CANCER SCREENING Cervical cancer screening should start at age 21 years unless your provider advises otherwise. After the first test: Women ages 21 through 29 should have a Pap test every 3 years. Exoprts do not agree on whether HPV testing is recommended for this age group. Women ages 30 through 65 should be screened with either a Pap test every 3 years or the HPV test every 5 years or both tests every 5 years (called cotesting ). Women who have been treated for precancer (cervical dysplasia) should continue to have Pap tests for 20 years after treatment or until age 65, whichever is longer. If you have had your uterus and cervix removed (total hysterectomy), and you have not been diagnosed with cervical cancer or precancer (high grade cervical neoplasia), you do not need cervical cancer screening. CHOLESTEROL SCREENING Cholesterol screening should begin at: Age 45 for women with no known risk factors for coronary heart disease Age 20 for women with known risk factors for coronary heart disease Repeat cholesterol screening should take place: Every 5 years for women with normal cholesterol levels More often if changes occur in lifestyle (including weight gain and diet) More often if you have diabetes, heart disease, kidney problems, or certain other conditions DIABETES SCREENING You should be screened for diabetes starting at age 35 and then repeated every 3 years if you have no risk factors for diabetes. Screening may need to start earlier and be repeated more often if you have other risk factors for diabetes, such as: You have a first degree relative with diabetes. You are overweight or have obesity. You have high blood pressure, prediabetes, or a history of heart disease. Screening for diabetes should be done if you are planning to become and you are overweight and have other risk factors such as high blood pressure. DENTAL EXAM Go to the dentist once or twice every year for an exam and cleaning. Your dentist will evaluate if you need more frequent visits. EYE EXAM Have an eye exam every 5 to 10 years before age 40. If you have vision problems, have an eye exam every 2 years or more often if recommended by your provider. You should have an eye exam that includes an examination of your retina (back of your eye) at least every year if you have diabetes. IMMUNIZATIONS Commonly needed vaccines include: Flu shot: get one every year. COVID-19 vaccine: ask your provider what is best for you. Tetanus-diphtheria and acellular pertussis (Tdap) vaccine: have one at or after age 19 as one of your tetanus-diphtheria vaccines if you did not receive it as an adolescent. Tetanus-diphtheria: have a booster (or Tdap) every 10 years. Varicella vaccine: receive 2 doses if you never had chickenpox or the varicella vaccine. Hepatitis B vaccine: receive 2, 3, or 4 doses, depending on your exact circumstances. Measles, mumps, and rubella (MMR) vaccine: receive 1 to 2 doses if you are not already immune to MMR. Your provider can tell you if you are immune. Ask your provider about the human papillomavirus (HPV) vaccine if: You have not received the HPV vaccine in the past You have not completed the full vaccine series (you should catch up on this shot) Ask your provider if you should receive other immunizations if you have certain health problems that increase your risk for some diseases such as pneumonia. INFECTIOUS DISEASE SCREENING Women who are sexually active should be screened for chlamydia and gonorrhea up until age 25. Women 25 years and older should be screened for chlamydia and gonorrhea if at high risk. Screening for hepatitis C: All adults ages 18 to 79 should get a one-time test for hepatitis C. people should be screened at every . Screening for human immunodeficiency virus (HIV): All people ages 15 to 65 should get a one-time test for HIV. Depending on your lifestyle and medical history, you may also need to be screened for infections such as syphilis and HIV, as well as other infections. PHYSICAL EXAM All adults should visit their provider from time to time, even if they are healthy. The purpose of these visits is to: Screen for disease Assess your risk of future medical problems Encourage a healthy lifestyle Update your vaccinations and other preventive care services Maintain a relationship with a provider in case of an illness Your height, weight, and BMI should be checked at every exam. During your exam, your provider may ask you about: Depression and anxiety Diet and exercise Alcohol and tobacco use Safety issues, such as using seat belts, smoke detectors, and intimate partner violence Your medicines and risk for interactions SKIN SELF-EXAM Your provider may check your skin for signs of skin cancer, especially if you're at high risk, such as if you: Have had skin cancer before Have close relatives with skin cancer Have a weakened immune system OTHER SCREENING Talk with your provider about colon cancer screening if you have a strong family history of colon cancer or polyps, or if you have had inflammatory bowel disease or polyps yourself. Routine bone density screening of women under 40 is not recommended.
[2024-04-12 08:17] VITALS: BP 120/68; PULSE 72; RESP 16; TEMP 36.6; O2SAT 97; BMI 32.0
== END 2024-04-12 09:02 | disposition home or self-care (01) ==
PROVIDERS: PCP Family Medicine; Visit Provider Nurse Practitioner Family
DX: D68.69 Other thrombophilia (principal); K74.69 Other cirrhosis of liver; D69.6 Thrombocytopenia, unspecified; F19.11 Other psychoactive substance abuse, in remission; F33.1 Major depressive disorder, recurrent, moderate; F60.3 Borderline personality disorder; J41.0 Simple chronic bronchitis; F17.200 Nicotine dependence, unspecified, uncomplicated; Z86.19 Personal history of other infectious and parasitic diseases; Z86.711 Personal history of pulmonary embolism; Z86.718 Personal history of other venous thrombosis and embolism; M25.552 Pain in left hip

== ENCOUNTER → 2024-04-12 08:04 | Outpatient (BNVA) | payer MEDICARE, MEDICAID, SELFPAY | PROVIDERS: PCP Nurse Practitioner Family; Visit Provider Nurse Practitioner Family | DX: Z23 Encounter for immunization (principal); D68.69 Other thrombophilia; K74.69 Other cirrhosis of liver; D69.6 Thrombocytopenia, unspecified; F19.11 Other psychoactive substance abuse, in remission; M25.552 Pain in left hip; E55.9 Vitamin D deficiency, unspecified; R09.89 Other specified symptoms and signs involving the circulatory and respiratory systems; F17.200 Nicotine dependence, unspecified, uncomplicated; Z71.6 Tobacco abuse counseling; Z86.718 Personal history of other venous thrombosis and embolism; Z86.711 Personal history of pulmonary embolism | CPT/HCPCS: 90471; 90715; 99212; 99396 ==

== ENCOUNTER 2024-05-31 12:01 | Outpatient (AMB) | payer MEDICARE, MEDICAID, SELFPAY ==
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
[2024-05-31 13:00] VITALS: BP 114/70; PULSE 84; RESP 16; TEMP 37.2; O2SAT 97; BMI 32.2
== END 2024-05-31 13:37 | disposition home or self-care (01) ==
PROVIDERS: PCP Nurse Practitioner Family; Visit Provider Family Medicine
DX: F60.3 Borderline personality disorder (principal); F33.1 Major depressive disorder, recurrent, moderate; F41.1 Generalized anxiety disorder; R91.8 Other nonspecific abnormal finding of lung field; Z86.19 Personal history of other infectious and parasitic diseases; M25.559 Pain in unspecified hip; R19.5 Other fecal abnormalities

== ENCOUNTER 2024-05-31 13:30 | Outpatient (REF) | payer MEDICARE, MEDICAID, SELFPAY ==
[2024-05-31 17:35] LABS: MANUAL DIFF FLAG NO
[2024-05-31 18:02] LABS: Alanine Aminotransferase 22 U/L (0-31); Albumin Level 3.9 g/dL (3.5-5.0); Alkaline Phosphatase 120 U/L (39-117); Anion Gap 11 (12-20); Aspartate Amino Transferase 36 U/L (5-31); Bilirubin Total 0.5 mg/dL (0.0-1.0); Blood Urea Nitrogen 9 mg/dL (9-16); Calcium 8.7 mg/dL (8.4-10.2); Carbon Dioxide 23 mmol/L (22-29); Chloride 108 mmol/L (96-108); Estimated Glomerular Filt Rate > 60; Glucose Random 83 mg/dL (60-115); Potassium 4.3 mmol/L (3.3-5.1); Sodium 138 mmol/L (135-145); Total Protein 7.5 g/dL (6.5-8.0)
[2024-05-31 18:05] LABS: Basophils Percent Auto 0.9 % (0-2); Eosinophils Absolute Auto 0.1 X10*3/uL (0.0-0.4); Eosinophils Percent Auto 1.9 % (0-4); Hematocrit 40.4 % (37.0-47.0); Hemoglobin 13.5 g/dl (12.0-16.0); Imm Gran Abs Auto 0.01 X10*3/uL (0.00-0.03); Imm Gran Pct Auto 0.3 % (0.0-0.4); Lymphocytes Absolute Auto 0.7 X10*3/uL (1.2-4.9); Lymphocytes Percent Auto 21.4 % (20-40); Mean Corpuscular HGB Conc 33.4 g/dl (31.0-35.0); Mean Corpuscular Hemoglobin 29.9 pg (27.0-33.0); Mean Corpuscular Volume 89.4 fL (80.0-98.0); Mean Platelet Volume 11.9 fL (9.4-12.3); Monocytes Absolute Auto 0.2 X10*3/uL (0.1-1.2); Monocytes Percent Auto 6.2 % (2-11); Neutrophils Absolute Auto 2.2 x10*3/uL (2.0-8.3); Neutrophils Percent Auto 69.3 % (45-73); Red Blood Count 4.52 X10*6/uL (4.20-5.50); Red Cell Distribution Width 15.4 % (11.0-16.0); White Blood Count 3.2 X10*3/uL (4.8-10.8)
[2024-05-31 18:06] LABS: Platelet Count 77 X10*3/uL (160-400)
[2024-05-31 18:19] LABS: Vitamin D 25-OH Total 30.9 ng/mL (>30)
== END 2024-05-31 13:31 | disposition home or self-care (01) ==
LOC: HO.WFDLDS 13:30
PROVIDERS: Visit Provider Family Medicine
DX: E55.9 Vitamin D deficiency, unspecified (principal); Z86.19 Personal history of other infectious and parasitic diseases; F60.3 Borderline personality disorder; F33.1 Major depressive disorder, recurrent, moderate; F41.1 Generalized anxiety disorder; R91.8 Other nonspecific abnormal finding of lung field; R19.5 Other fecal abnormalities
CPT/HCPCS: 36415; 80053; 82306; 85025; 96127; 99212

== ENCOUNTER 2024-07-20 11:08 | Outpatient (AMB) | payer MEDICARE, MEDICAID, SELFPAY ==
--- NOTE | 2024-07-20 11:18 | MHC.PC.OV ---
Vital Signs 07/20/24 11:26 Height 6 ft 1 in Weight 251 lb 4 oz BMI 33.1 BP 110/66 Blood Pressure Location Lt brachial Position Sitting Respiration 14 Pulse 82 Pulse Source Pulse Oximeter Temp 98.4 F Temp Source Oral Pulse Oximetry (%) 95 Oxygen Delivery Method Room Air Intake Visit Reasons: TMC /Fu chronic conditions Intake Note: tcm chonic pain in her left hip and not able to hold anything down per pt this is why she was admitted. Quality Assurance Tester Required: No Allergies No Known Allergies Allergy (Verified 07/20/24 11:25) Medication List - Last Reconciled 07/20/24 by Ernesto Clark MD albuterol sulfate 90 mcg/actuation (Ventolin HFA) 2 puffs inhalation Q4-6H PRN 30 days apixaban (Eliquis) 2.5 mg PO BID 90 days bupropion HCl XL (Wellbutrin XL) 300 mg PO QAM 30 days cholecalciferol (vitamin D3) 125 mcg PO DAILY ergocalciferol (vitamin D2) 50 mcg PO DAILY methadone 100 mg PO 6XD ondansetron 4 mg PO BID PRN 10 days prednisone 40 mg (2 x 20 mg) PO DAILY 5 days Tobacco use date assessed: 04/12/24 Dental Screening Dental Screen Date: 04/12/24 HPI TMC /Fu chronic conditions HPI Details 53 y/o female presents to f/u hospital discharge visit for altered mental status/L hip pain. Imaging including CT head without acute findings, labs unremarkable aside from being positive for cocaine. Mild hypokalemia also seen at 3.5. Has complaints of ongoing nausea. Complaints of ongoing L hip pain. TCM TCM Information Date of Discharge 07/14/24 Discharged From Other ([facility]) Interactive Contact Date (Reference documentation from this date) 07/20/24 [facility] Medical History (Updated 07/20/24 @ 12:14 by Ernesto Clark MD) History of hepatitis C Nicotine dependence, cigarettes, uncomplicated COPD (chronic obstructive pulmonary disease) Thrombocytopenia Secondary hypercoagulability disorder History of DVT (deep vein thrombosis) History of pulmonary embolism Depression Night terrors, adult Anxiety Borderline personality disorder Asthma Cirrhosis of liver Surgical History (Updated 05/17/24 @ 09:03 by Sary Jasso PA-C) History of appendectomy History of ankle surgery History of cholecystectomy History of hysterectomy Family History (Updated 04/15/23 @ 10:24 by Melissa Michael CMA) Mother Cancer Maternal Grandmother Cancer Maternal Aunt Cancer Social History (Updated 04/15/23 @ 10:27 by Melissa Michael [facility]) Household Members: Spouse Housing: House Alcohol intake: former Patient Tobacco Use Status: Current everyday Tobacco user Tobacco use type: Cigarette Cigarettes Per Day: 4 Years Smoked: 40 e-Cigarette/Vaping Use: Never Used Substance Use Type: Marijuana service: No Current occupational status: disabled Current occupation: Borderline personality disorder Current occupational exposures/hazards: No Sexual orientation: Unable to collect Gender identity: Unable to collect Cognitive needs: No Hearing needs: No Vision needs: Yes (wears contacts) Questionnaire Thrive Questionnaire Date Thrive assessed: 05/31/24 I am a: Patient What is your living situation today?: I have a steady place to live Within the past 12 months, did the food you bought not last and you didn't have the money to get more?: Sometimes True Within the past 12 months, did you worry whether your food would run out before you got money to buy more?: Sometimes True Do you have trouble paying for medicines?: No Do you have trouble getting transportation to medical appointments?: Yes Do you have trouble paying your heating and electricity bill?: Yes Do you have trouble taking care of your child, family member or friend?: Yes Do you have trouble with day-to-day activities such as bathing, preparing meals, shopping, managing finances, etc.?: Yes Are you currently unemployed and looking for a job?: No Are you interested in more education?: No THRIVE Score: 4 SHILA-7 AMB Questionnaire SHILA-7 Date SHILA - 7 assessed: 04/09/24 Source: Developed by Drs. Martin Rubio, Larissa Figueroa, Rajan Howard and colleagues, with an educational grover from [employer]. Review of Systems Const Denies chills, Reports fatigue, Denies fever(s), Denies headache(s) and Denies weakness ENT Denies dizziness and Denies headache(s) Card Denies dyspnea Resp Denies cough, Denies dyspnea, Denies wheezing and Denies other (shortness of breath) Musc Details: L hip pain Denies numbness and Denies tingling Neuro Denies dizziness, Denies headache(s), Denies numbness, Denies tingling and Denies weakness Psych Denies anxiety and Denies depression Endo Reports fatigue Aller/Immun Denies wheezing Physical exam (Primary Care) Vital Signs: Last Vital Signs Temp 98.4 F 07/20/24 11:26 Pulse 82 07/20/24 11:26 Resp 14 07/20/24 11:26 BP 110/66 07/20/24 11:26 Pulse Ox 95 07/20/24 11:26 Oxygen Delivery Method Room Air 07/20/24 11:26 BMI result Body Mass Index 33.1 Tobacco/Smoking Status: Tobacco use Status Tobacco use date assessed 04/12/24 07/20/24 11:20 Patient Tobacco Use Status Current everyday Tobacco 07/20/24 11:20 Tobacco use type Cigarette 07/20/24 11:20 e-Cigarette/Vaping Use Never Used 07/20/24 11:20 Thrive Assessment: Date of Thrive Assessment Date Thrive assessed 05/31/24 07/20/24 11:20 Const General: well developed; No acute distress Nutritional Appearance: well nourished Orientation/consciousness: patient oriented x3 [facility] Head: Yes normocephalic and Yes atraumatic Eyes General: appearance normal, both eyes and all related structures Pupils: Equal, round and reactive pupils present EOM: EOMs intact bilaterally Resp Effort & Inspection: normal respiratory effort Auscultation: clear to auscultation bilaterally Cardio Rate: regular rate Rhythm: regular rhythm Heart sounds: S1 normal heart sound present, S2 normal heart sound present, no gallops, no murmurs and no rubs Neuro General: patient oriented x3 and gait normal Cranial nerves: Yes Equal, round and reactive pupils present Psych Affect: normal affect Coding Level of Care Code Est Pt Level 4 (14781) Diagnoses Altered mental status R41.82 Left hip pain M25.552 Nausea R11.0 Substance abuse F19.10 Assessment & Plan Assessment & Plan (1) Altered mental status: Code(s): R41.82 - Altered mental status, unspecified Category: Medical Plan: She?is?back?to?baseline. Cautioned?her?regarding?illicit?substances (2) Left hip pain: Code(s): M25.552 - Pain in left hip Category: Medical Plan: Ongoing?severe?left?hip?pain?and?imaging?shows?severe?osteoarthritis Will?give?her?a?script?for?prednisone She?plans?to?start?physical?therapy I?am?referring?her?to?Ortho?as?she?would?like?to?discuss?next?steps?including?hip?replacement. (3) Nausea: Code(s): R11.0 - Nausea Category: Medical Plan: Ondansetron?helps?significantly Advised?her?to?use?only?sparingly Hydrate?well (4) Substance abuse: Code(s): F19.10 - Other psychoactive substance abuse, uncomplicated Category: Medical Plan: History?of?substance?abuse?and?recent?hospitalization?for?mental?status?alteration/intoxication. Would?advise?caution?with?controlled?substances. Orders: Referrals Orthopedics Referral M16.12 - Unilateral primary osteoarthritis, left hip, M25.552 - Pain in left hip Medications: New prednisone 40 mg (2 x 20 mg) PO DAILY 5 days 10 tabs 0RF cyclobenzaprine 5 mg PO BEDTIME 7 days PRN 7 tabs 0RF muscle spasm
[2024-07-20 11:26] VITALS: BP 110/66; PULSE 82; RESP 14; TEMP 36.9; O2SAT 95; BMI 33.1
== END 2024-07-20 12:15 | disposition home or self-care (01) ==
PROVIDERS: PCP Family Medicine; Visit Provider Family Medicine
DX: R41.82 Altered mental status, unspecified (principal); M25.552 Pain in left hip; R11.0 Nausea; F19.10 Other psychoactive substance abuse, uncomplicated

== ENCOUNTER → 2024-07-20 11:08 | Outpatient (BNVA) | payer MEDICARE, MEDICAID, SELFPAY | PROVIDERS: PCP Family Medicine; Visit Provider Family Medicine | DX: R41.82 Altered mental status, unspecified (principal); M25.552 Pain in left hip; R11.0 Nausea; F19.10 Other psychoactive substance abuse, uncomplicated | CPT/HCPCS: 99212 ==

== ENCOUNTER 2024-07-26 13:06 | Outpatient (REF) | payer MEDICARE, MEDICAID, SELFPAY ==
--- NOTE | ~2024-07-26 | XR_ITS ---
EXAMINATION: XR HIP, LEFT CLINICAL INFORMATION: M25.552 - Pain in left hip COMPARISON: None available. TECHNIQUE: Two views of the left hip. FINDINGS: No fracture or gross dislocation. End-stage arthropathy the left hip joint, with [id number] appearance, productive marginal osteophytes, subchondral irregularity and sclerosis of the superior femoral head and associated acetabulum. There are prominent subcapital osteophytes. Remainder the pelvis and proximal femur appear normal. The left SI joint is normal. There are 2 surgical clips overlying the left sacral wing. Soft tissues otherwise appear normal. XR/XR hip LT min 2V IMPRESSION: End-stage arthropathy left hip joint with [id number] appearance. There is some degree of subchondral irregularity/collapse with sclerosis of the superior articular femoral head. Electronically signed by: Glynn Busch MD 07/26/2024 03:30 PM [facility]
--- NOTE | ~2024-07-26 | US_ITS ---
EXAMINATION: Noninvasive assessment of the bilateral lower extremities with ARTERIAL DUPLEX, ANKLE BRACHIAL INDICES (ABIs), and PULSE VOLUME RECORDINGS (PVRs). CLINICAL INFORMATION: Other specified symptoms and signs involving the circulation. TECHNIQUE: Duplex Doppler techniques with waveform analysis and measurement of velocities in the bilateral common femoral, profunda femoris, superficial femoral, popliteal and tibial arteries were performed. Additionally, ankle pulse volume recordings, ankle pressure measurements and ankle brachial indices were obtained of the lower extremity arterial system bilaterally. The study was performed only at rest. COMPARISON: None FINDINGS: DIRECT DUPLEX DOPPLER FINDINGS: RIGHT LEG: Common femoral artery: 140 cm/s, phasicity: Triphasic. Profunda femoris artery: 71 cm/s, phasicity: Triphasic. Spectral broadening. Superficial femoral artery (proximal): 114 cm/s, phasicity: Triphasic. Superficial femoral artery (mid): 97 cm/s, phasicity: Triphasic. Superficial femoral artery (distal): 100 cm/s, phasicity: Triphasic. Popliteal artery: 62 cm/s, phasicity: Triphasic. Posterior tibial artery: 82 cm/s, phasicity: Triphasic. Spectral broadening. Peroneal artery: 41 cm/s, phasicity: Triphasic. Anterior tibial artery: 55 cm/s, phasicity: Triphasic. Dorsalis pedis artery: 18 cm/s, phasicity:Biphasic. Spectral broadening and reversal flow. LEFT LEG: Common femoral artery: 212 cm/s, phasicity: Triphasic. Spectral broadening. Profunda femoris artery: 105 cm/s, phasicity: Biphasic. Spectral broadening. Superficial femoral artery (proximal): 98 cm/s, phasicity: Triphasic. Spectral broadening. Superficial femoral artery (mid): 97 cm/s, phasicity: Triphasic. Superficial femoral artery (distal): 96 cm/s, phasicity: Triphasic. Popliteal artery: 69 cm/s, phasicity: Triphasic. Posterior tibial artery: 108 cm/s, phasicity: Triphasic. Peroneal artery: 18 cm/s, phasicity: Monophasic. Anterior tibial artery: 55 cm/s, phasicity: Biphasic. Dorsalis pedis artery: 33 cm/s, phasicity: Monophasic and reversal with spectral broadening. BRACHIAL PRESSURES: Right: Diseased arteries below the knee involving mostly dorsalis pedis artery. Left: Diseased arteries below the knee involving mostly the dorsalis pedis artery. Electronically signed by: Ryley Cha MD 07/26/2024 03:43 PM CAREY RP
== END 2024-07-26 13:07 | disposition home or self-care (01) ==
LOC: HO.US 13:06
PROVIDERS: PCP Family Medicine; Visit Provider Nurse Practitioner Family
DX: I73.9 Peripheral vascular disease, unspecified (principal); R09.89 Other specified symptoms and signs involving the circulatory and respiratory systems; M25.552 Pain in left hip
CPT/HCPCS: 73502; 93925

== ENCOUNTER → 2024-07-26 13:15 | Outpatient (BNV) | payer MEDICARE, MEDICAID, SELFPAY | PROVIDERS: PCP Family Medicine; Visit Provider Radiology Diagnostic Radiology | DX: I73.9 Peripheral vascular disease, unspecified (principal); M16.12 Unilateral primary osteoarthritis, left hip | CPT/HCPCS: 73502; 93925 ==

== ENCOUNTER 2024-07-27 10:03 | Outpatient (AMB) | payer MEDICARE, MEDICAID, SELFPAY ==
--- NOTE | 2024-07-27 07:47 | MHC.OFFVIS ---
Intake Visit Reasons: former smoker Allergies No Known Allergies Allergy (Verified 07/20/24 11:25) HPI HPI former smoker: Details: Initial visit for this 53yo former smoker with a 40PYH. Patient started smoking at age 12 for 41 years at 1ppd. She quit 02/2024. . / Denies marijuana use. Denies second hand smoke exposure. Denies exposure to chemicals or substances like asbestos. . Denies known family history of lung cancer. Denies personal history of cancers. Denies chest CT in last year. . Denies recent travel outside the [place]. Denies recent respiratory illness or recent hospitalization for respiratory issues. Reports testing positive for COVID. Denies receiving COVID Vaccine. . Denies fever, chills, new/worsening cough, hemoptysis, hoarseness or dysphagia. Denies significant chest pain, significant dyspnea or unintentional weight loss. Patient Lung Cancer Screening Questionnaire reviewed with patient by provider. . Shared Decision Making Completed. Patient meets criteria. Discussed in detail with patient, the risk vs benefit of LDCT screening. Patient consents to proceed with scan. Discussed and encouraged continued smoking cessation. [facility] Medical History (Updated 07/27/24 @ 10:15 by Sary Jasso PA-C) Personal history of nicotine dependence History of hepatitis C Cirrhosis of liver History of DVT (deep vein thrombosis) History of pulmonary embolism Secondary hypercoagulability disorder COPD (chronic obstructive pulmonary disease) Asthma Thrombocytopenia Borderline personality disorder Depression Anxiety Night terrors, adult Surgical History (Updated 05/17/24 @ 09:03 by Sary Jasso PA-C) History of appendectomy History of ankle surgery History of cholecystectomy History of hysterectomy Family History (Updated 04/15/23 @ 10:24 by Melissa Michael [facility]) Mother Cancer Maternal Grandmother Cancer Maternal Aunt Cancer Social History (Updated 07/27/24 @ 10:16 by Sary Jasso PA-C) Household Members: Spouse Housing: House Alcohol intake: former Patient Tobacco Use Status: Former Tobacco user Tobacco use type: Cigarette Years Smoked: (onset 12yo, 1ppd x 41yrs, 40pyh - quit 02/2024) e-Cigarette/Vaping Use: Never Used Substance Use Type: Marijuana service: No Current occupational status: disabled Current occupation: Borderline personality disorder Current occupational exposures/hazards: No Sexual orientation: Unable to collect Gender identity: Unable to collect Cognitive needs: No Hearing needs: No Vision needs: Yes (wears contacts) Assessment & Plan Assessment & Plan (1) Personal history of nicotine dependence: Comment: (onset 12yo, 1ppd x 41yrs, 40pyh - quit 02/2024) Code(s): Z87.891 - Personal history of nicotine dependence Category: Medical Plan: - SDM visit completed today in office. - Patient meets criteria for LDCT for lung cancer screening purposes and is asymptomatic. - Smoking cessation counseling offered. Patients can always call [phone]. - Will arrange for a LDCT scan of the chest for screening purposes at [facility]. - Risks, benefits, and alternatives were discussed in detail and the patient agrees to proceed. - Risks discussed include but are not limited to: radiation exposure, anxiety during testing and while awaiting results, false negatives, false positives and possibility of additional intervention such as further imaging or surgical procedures for benign disease. - Benefits are obviously detection of lung cancer at an early stage which can lead to improved outcomes. - Discussed the importance of screening program compliance with adherence to yearly LDCT scan as scheduled - or sooner interval scans for personalized screening regimen. - Discussed follow up plan. Our office will send a letter discussing results and if needed set up phone call and office visit based on CT findings. - Patient educated on results categorization and the management decisions for suspicious findings potentially found on the screening LDCT scan. Any patient with a Lung RADS score of 3 or 4 will be reviewed by a multidisciplinary team at [facility] to form a plan of action in regards to scan findings. - If further work up is warranted for a suspicious lung finding this will be followed by the Lung Cancer Screening program in conjunction with the Thoracic Surgery Department at [facility]. - A copy of the office note and LDCT will be sent to the patient's PCP - as well as documentation on any associated further plans of care. - Incidental findings on LDCT are the PCP's responsibility. These findings are indicated with an S finding on the LDCT Assessment. A note discussing the findings will be sent to the PCP who is then responsible for further management. - All questions answered.? Coding Level of Care Code Lung Cancer Screening G0296 Diagnoses Personal history of nicotine dependence Z87.891
== END 2024-07-27 10:41 | disposition home or self-care (01) ==
PROVIDERS: PCP Family Medicine; Visit Provider Physician Assistant Medical
DX: Z87.891 Personal history of nicotine dependence (principal)
CPT/HCPCS: G0296

== ENCOUNTER 2024-07-27 10:16 | Outpatient (REF) | payer MEDICARE, MEDICAID, SELFPAY ==
--- NOTE | ~2024-07-27 | CT_ITS ---
CLINICAL HISTORY: F17.210 - Nicotine dependence, cigarettes, uncomplicated CT lung cancer screening (LDCT) Comparison: None Technique: Axial CT images of the chest using low-dose technique. Referring provider counseled the patient on shared decision-making for LDCT screening. Additional counseling was provided on smoking cessation. Effective radiation dose total: DLP 78.7 mGycm, CTDIvol 2.3 mGy. Findings: Pulmonary nodules: 2 mm lingular nodule, axial 79. Ill-defined, somewhat angular nodular density at the right lung base measuring up to 4 mm on axial 102. Incidental pulmonary findings: Faint tree-in-bud densities within the left lower lobe, axial 116-126. Regions of reticular prominence and ground-glass density anteriorly within the upper lobes bilaterally. Regions of scarring and/or atelectasis are noted. Non pulmonary findings: Coronary artery calcifications: None Limited upper abdomen: The spleen appears mildly enlarged. Other: None Impression: LungRADS 2 - Benign Appearance: Continue annual screening with low dose Chest CT in 12 months. No comparison studies. Category 1: Normal; continue annual screening Category 2: Benign appearance or behavior, continue annual screening Category 3: Probably benign, [address] recommended Category 4A: Suspicious, [address] recommended; may consider PET/CT Category 4B: Suspicious, Additional diagnostics and/or tissue sampling recommended Category 4X: Suspicious, Additional diagnostics and/or tissue sampling recommended Category 0: Recalls (incomplete screen due to Incomplete coverage, Noise, Respiratory motion, Expiration, Obscured by acute abnormality) This document has been electronically signed by: David Koehler MD on 07/27/2024 13:04:18
== END 2024-07-27 10:17 | disposition home or self-care (01) ==
LOC: HO.CT 10:16
PROVIDERS: PCP Family Medicine; Visit Provider Physician Assistant Medical
DX: Z12.2 Encounter for screening for malignant neoplasm of respiratory organs (principal); F17.210 Nicotine dependence, cigarettes, uncomplicated
CPT/HCPCS: 71271; G0296

== ENCOUNTER → 2024-07-27 10:17 | Outpatient (BNV) | payer MEDICARE, MEDICAID, SELFPAY | PROVIDERS: PCP Family Medicine; Visit Provider Radiology Vascular & Interventional Radiology | DX: F17.210 Nicotine dependence, cigarettes, uncomplicated (principal) | CPT/HCPCS: 71271 ==

== ENCOUNTER 2024-09-10 12:28 | Outpatient (REF) | payer MEDICARE, MEDICAID, SELFPAY ==
--- NOTE | ~2024-09-10 | XR_ITS ---
EXAMINATION: XR PELVIS 1-2 VIEWS HISTORY: M25.559 - Pain in unspecified hip COMPARISON: Correlation is made with plain films of the left hip dated 07/26/2024. FINDINGS: Two AP views of the pelvis are submitted. Osseous mineralization is normal. There is no fracture or dislocation. Again seen is severe osteoarthritis of the left hip, with joint space narrowing and osteophyte formation. The right hip joint space is maintained. The sacroiliac joint spaces are preserved. There are phleboliths in the pelvis. XR/XR pelvis 1-2V IMPRESSION: Severe osteoarthritis of the left hip. Electronically signed by: Martin Solitario MD 09/11/2024 06:58 AM EDT
== END 2024-09-10 12:29 | disposition home or self-care (01) ==
LOC: HO.HOSX 12:28
PROVIDERS: Visit Provider Orthopaedic Surgery
DX: M25.559 Pain in unspecified hip (principal); M16.12 Unilateral primary osteoarthritis, left hip
CPT/HCPCS: 72170; 99202

== ENCOUNTER 2024-09-10 12:55 | Outpatient (AMB) | payer MEDICARE, MEDICAID, SELFPAY ==
--- NOTE | 2024-09-10 13:04 | A.OFFVIS_ITS ---
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 Patient reports that she has been having progressively worsening pain for the last two years now. She reports no previous treatments. Her pain is felt in the groin and around the lateral aspect for the hip. She states that she has a clogged femoral artery - She is unsure if she has appointment with vascular for this. She is taking Tylenol, about 2,000mg BID- she also has liver disease. 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 She has had hip pain now for several years and has been pushing through it but can no longer function comfortably. She has a remote history of IV drug use in his been on methadone for proximally 5 years. She states she is stable on methadone and that is not and has not been an issue for some time with her. She had undiagnosed hepatitis-C in his his lead to some moderate cirrhosis of her liver. She also has a history of pulmonary embolisms with a coagulopathy of unknown etiology. She is on Eliquis. Her primary complaint today is unbearable left hip pain. [facility]LY [facility], [facility]1983 Medical History (Updated 07/27/24 @ 10:15 by Sary Jasso PA-C) Personal history of nicotine dependence History of hepatitis C Cirrhosis of liver History of DVT (deep vein thrombosis) History of pulmonary embolism Secondary hypercoagulability disorder COPD (chronic obstructive pulmonary disease) Asthma Thrombocytopenia Borderline personality disorder Depression Anxiety Night terrors, adult Surgical History (Updated 05/17/24 @ 09:03 by Sary Jasso PA-C) History of appendectomy History of ankle surgery History of cholecystectomy History of hysterectomy Family History (Updated 04/15/23 @ 10:24 by Melissa Michael [facility]) Mother Cancer Maternal Grandmother Cancer Maternal Aunt Cancer Social History (Updated 07/27/24 @ 10:16 by Sary Jasso PA-C) Household Members: Spouse Housing: House Alcohol intake: former Patient Tobacco Use Status: Former Tobacco user Tobacco use type: Cigarette Years Smoked: (onset 12yo, 1ppd x 41yrs, 40pyh - quit 02/2024) e-Cigarette/Vaping Use: Never Used Substance Use Type: Marijuana service: No Current occupational status: disabled Current occupation: Borderline personality disorder Current occupational exposures/hazards: No Sexual orientation: Unable to collect Gender identity: Unable to collect Cognitive needs: No Hearing needs: No Vision needs: Yes (wears contacts) Physical Exam Vital Signs: BMI result Body Mass Index 33.1 Extrem Other: Severe gait antalgia left hip Positive impingement test Results Reviewed Results Reviewed: I personally reviewed relevant radiographs. Severe left hip osteoarthritis with proximal migration of the femoral head and lateral subluxation Assessment & Plan Assessment & Plan (1) Osteoarthritis of left hip: Code(s): M16.12 - Unilateral primary osteoarthritis, left hip Category: Medical Plan: This is a very pleasant 53-year-old woman with a complicated medical history. She is severely debilitated by her severe left hip arthritis and she needs a replacement. There are some challenges with progressing forward the most obvious 1 of those is a history of PE with a questionable vascular status and a history of liver cirrhosis. Her albumin was borderline low with a normal total protein when she presented to the emergency room at [facility] for altered mental status. She also is a cigarette smoker in trying to quit. I had a long discussion with her regarding her medical comorbidities and I would like to proceed forward with surgery but slowly and with the appropriate medical clearance. I discussed the risk of complications in the risk of infection specifically I do think she would benefit from a seated walker and we will begin the preoperative clearance process. She understands that if she is deemed high risk that we may not be able to proceed with her surgery at our institution in addition we have talked about her illicit drug use which she states she does not do although there is a positive cocaine test from several months back. She states this was a 1 time thing that was done with friends socializing and was done predominantly for pain. She denies any IV drug use and states this was something that has not happened in years and will not happen again. (2) Nicotine dependence, cigarettes, uncomplicated: Comment: (35PYH, quit 02/2024) Code(s): F17.210 - Nicotine dependence, cigarettes, uncomplicated Category: Medical Plan: Has quit a long history of heavy use (3) COPD (chronic obstructive pulmonary disease): Comment: PRN SHMUEL only, controlled. Code(s): J44.9 - Chronic obstructive pulmonary disease, unspecified Category: Medical Qualifiers: COPD type: chronic bronchitis Chronic bronchitis type: simple Qualified Code(s): J41.0 - Simple chronic bronchitis Plan: Controlled (4) Secondary hypercoagulability disorder: Comment: on eliquis, hx of DVT and PE Code(s): D68.69 - Other thrombophilia Category: Medical Plan: Unknown etiology. Some vascular studies suggest vasculopathy of the lower legs. (5) Cirrhosis of liver: Comment: Per patient due to Tylenol intake, patient reports she does not drink Code(s): K74.60 - Unspecified cirrhosis of liver Category: Medical Qualifiers: Hepatic cirrhosis type: other cirrhosis Qualified Code(s): K74.69 - Other cirrhosis of liver Plan: Normal total protein and albumin borderline low. We will need clearance prior to surgery. Orders: Orders XR pelvis 1-2V Today M25.559 - Pain in unspecified hip Coding Level of Care Code New Pt Level 4 (11977) Diagnoses Osteoarthritis of left hip M16.12 Nicotine dependence, cigarettes, uncomplicated F17.210 Simple chronic bronchitis J41.0 COPD type: chronic bronchitis Chronic bronchitis type: simple Secondary hypercoagulability disorder D68.69 Other cirrhosis of liver K74.69 Hepatic cirrhosis type: other cirrhosis
[2024-09-10 13:05] VITALS: BMI 33.1
== END 2024-09-10 13:54 | disposition home or self-care (01) ==
LOC: HO.HOS 12:55
PROVIDERS: PCP Family Medicine; Visit Provider Orthopaedic Surgery
DX: M16.12 Unilateral primary osteoarthritis, left hip (principal); F17.210 Nicotine dependence, cigarettes, uncomplicated; J41.0 Simple chronic bronchitis; D68.69 Other thrombophilia; K74.69 Other cirrhosis of liver
CPT/HCPCS: 99204

== ENCOUNTER → 2024-09-10 12:58 | Outpatient (BNV) | payer MEDICARE, MEDICAID, SELFPAY | PROVIDERS: Visit Provider Radiology Diagnostic Radiology | DX: M16.12 Unilateral primary osteoarthritis, left hip (principal) | CPT/HCPCS: 72170 ==

== ENCOUNTER 2024-09-13 15:01 | Outpatient (AMB) | payer MEDICARE, MEDICAID, SELFPAY ==
[2024-09-13 15:07] VITALS: BMI 33.1
--- NOTE | 2024-09-13 15:07 | A.OFFVIS_ITS ---
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 She has a significant history of deep vein thrombosis and recognized history of pulmonary embolism following a period of immobility attributed previously to liver disease-related health decline. Her existing comorbidities include Hepatitis C-induced moderate cirrhosis and a background of intravenous drug abuse, currently managed with methadone. No current symptoms of clotting disorder beyond a low platelet count have been disclosed. Last platelet count was 77 she now presents for vascular evaluation [facility] Medical History (Updated 09/13/24 @ 16:04 by Raymond Khanna MD) PAD (peripheral artery disease) Personal history of nicotine dependence History of hepatitis C Cirrhosis of liver History of DVT (deep vein thrombosis) History of pulmonary embolism Secondary hypercoagulability disorder COPD (chronic obstructive pulmonary disease) Asthma Thrombocytopenia Borderline personality disorder Depression Anxiety Night terrors, adult Surgical History History of appendectomy History of ankle surgery History of cholecystectomy History of hysterectomy Family History Mother Cancer Maternal Grandmother Cancer Maternal Aunt Cancer Social History Household Members: Spouse Housing: House Alcohol intake: former Patient Tobacco Use Status: Former Tobacco user Tobacco use type: Cigarette Years Smoked: (onset 12yo, 1ppd x 41yrs, 40pyh - quit 02/2024) e-Cigarette/Vaping Use: Never Used Substance Use Type: Marijuana service: No Current occupational status: disabled Current occupation: Borderline personality disorder Current occupational exposures/hazards: No Sexual orientation: Unable to collect Gender identity: Unable to collect Cognitive needs: No Hearing needs: No Vision needs: Yes (wears contacts) Review of Systems Const All systems reviewed & are unremarkable except as noted in HPI and below Reports no additional complaints ENT Reports Normal hearing present Card Denies chest pain, Denies chest pain at rest, Denies chest pain with activity and Denies pedal edema Resp Denies cough GI Denies abdominal pain Musc Denies abnormal gait, Denies muscle cramps and Denies radiating pain into limb Skin/Breast Denies skin ulcer and Denies wounds Neuro Reports Normal hearing present and Denies abnormal gait Psych Reports no additional complaints Physical Exam Vital Signs: BMI result Body Mass Index 33.1 Const General: cooperative, healthy appearing and comfortable Orientation/consciousness: oriented to person, oriented to place and oriented to time HEENT Head: Yes normal to inspection Neck Neck: Yes normal visual inspection Carotids: no bruits Chest Chest palpation & inspection: normal inspection of the chest Resp Effort & Inspection: normal respiratory effort and able to speak in complete sentences Auscultation: clear to auscultation bilaterally, no crackles, no rales, no rhonchi and no wheezes Cardio Rate: regular rate Rhythm: regular rhythm Heart sounds: S1 normal heart sound present and S2 normal heart sound present Bruits: no carotid bruits Peripheral pulses: Peripheral pulses 2+ throughout GI Inspection: Yes normal to inspection Skin Wounds: no wounds Hair: normal Neuro General: oriented to person, oriented to place and oriented to time Cranial nerves: Yes CN's II-XII intact bilaterally and Yes Normal hearing present Cognition (Neuro): normal cognition Motor exam (neuro): 5/5 motor strength present throughout Extrem Other: venous exam: No significant superficial varicosities or spider telangiectasias, minimal edema General: No clubbing, No cyanosis and No edema Psych Appearance: grossly normal Mental Status: mental status grossly normal Speech and movement: Normal speech and movement present Assessment & Plan Assessment & Plan (1) History of DVT (deep vein thrombosis): Comment: LLE with secondary hypercoaguable state on eliquis Code(s): Z86.718 - Personal history of other venous thrombosis and embolism Category: Medical Plan: In short patient will require inferior vena cava filter placement. This has been discussed in detail with the patient along with risks, benefits, and complications. This includes but is not limited to bleeding, infection, heart attack, need for emergent surgical repair, limb ischemia, blood vessel damage, bleeding, puncture, kidney injury, bruising, allergic reaction, and skin reaction. The patient demonstrates a clear understanding. We will schedule for the next appropriate time. Thank you for allowing us to assist in this patient's care. (2) History of pulmonary embolism: Comment: with secondary hypercoaguable state on eliquis Code(s): Z86.711 - Personal history of pulmonary embolism Category: Medical Plan: See above Coding Level of Care Code New Pt Level 4 (51257) Complex EM visit Add On G2211 Diagnoses History of DVT (deep vein thrombosis) Z86.718 History of pulmonary embolism Z86.711
== END 2024-09-13 15:40 | disposition home or self-care (01) ==
LOC: HO.HVS 15:02
PROVIDERS: Visit Provider Surgery Vascular Surgery
DX: Z86.718 Personal history of other venous thrombosis and embolism (principal); Z86.711 Personal history of pulmonary embolism
CPT/HCPCS: 99204; G2211

== ENCOUNTER → 2024-09-13 15:01 | Outpatient (BNVA) | payer MEDICARE, MEDICAID, SELFPAY | PROVIDERS: Visit Provider Surgery Vascular Surgery | DX: Z86.718 Personal history of other venous thrombosis and embolism (principal); Z86.711 Personal history of pulmonary embolism | CPT/HCPCS: 99202 ==

== ENCOUNTER 2024-10-04 10:41 | Outpatient (AMB) | payer MEDICARE, MEDICAID, SELFPAY ==
--- NOTE | 2024-10-04 10:43 | A.OFFPC_ITS ---
Vital Signs 10/04/24 10:53 Height 6 ft 1 in Weight 263 lb 6 oz BMI 34.7 BP 122/64 Blood Pressure Location Lt brachial Position Sitting Respiration 14 Pulse 91 Pulse Source Pulse Oximeter Temp 98.6 F Temp Source Oral Pulse Oximetry (%) 97 Oxygen Delivery Method Room Air Intake Visit Reasons: Discharged from [facility] on 09/27 Intake Note: patient Scheduled for ED discharge follow-up to review any new or preexisting condition going on. Patient also said she will like to change eliquis and is starting to have side effect as such as dry mouth, breathing. Is last menstrual period known: No Post menopausal: No Patient : No Allergies No Known Allergies Allergy (Verified 10/04/24 10:47) Medication List - Last Reconciled 10/04/24 by Ernesto Clark MD albuterol sulfate 90 mcg/actuation (Ventolin HFA) 2 puffs inhalation Q4-6H PRN 30 days apixaban (Eliquis) 2.5 mg PO BID 90 days bupropion HCl XL (Wellbutrin XL) 300 mg PO QAM 30 days cholecalciferol (vitamin D3) 125 mcg PO DAILY ergocalciferol (vitamin D2) 50 mcg PO DAILY levothyroxine 50 mcg PO DAILY 30 days methadone 100 mg PO 6XD rivaroxaban 10 mg PO DAILY 90 days [Seated walker As directed] Tobacco use date assessed: 10/04/24 Dental Screening Dental Screen Date: 10/04/24 Did you have a dental visit in the last 12 months?: Yes Did you have a dental problem in the last 6 months where you did not have access to dental care?: No Was dental information given to patient?: No HPI Discharged from [facility] on 09/27 HPI Details 53 y/o female presents to [facility] [place] ischarge visit after a fall. Had reported significant pain of L hip. Imaging had revealed no fractures or acute injuries. L hip pain and pt already had hx of osteoarthritis of L hip. She is on gabapentin and flexeril. She is followed by orthopedics and plan is to perform a L hip replacement. Hx of DVT. Had been following up with vascular. She would like to switch from eliquis to xarelto. [facility] Medical History (Updated 10/04/24 @ 11:13 by Catracho Pringle) PAD (peripheral artery disease) Personal history of nicotine dependence History of hepatitis C Cirrhosis of liver History of DVT (deep vein thrombosis) History of pulmonary embolism Secondary hypercoagulability disorder COPD (chronic obstructive pulmonary disease) Asthma Thrombocytopenia Borderline personality disorder Depression Anxiety Night terrors, adult Surgical History History of appendectomy History of ankle surgery History of cholecystectomy History of hysterectomy Family History Mother Cancer Maternal Grandmother Cancer Maternal Aunt Cancer Social History Household Members: Spouse Housing: House Alcohol intake: former Patient Tobacco Use Status: Former Tobacco user Tobacco use type: Cigarette Years Smoked: (onset 12yo, 1ppd x 41yrs, 40pyh - quit 02/2024) e-Cigarette/Vaping Use: Never Used Substance Use Type: Marijuana service: No Current occupational status: disabled Current occupation: Borderline personality disorder Current occupational exposures/hazards: No Sexual orientation: Unable to collect Gender identity: Unable to collect Cognitive needs: No Hearing needs: No Vision needs: Yes (wears contacts) Questionnaire PHQ-9 Over the last 2 weeks, how often have you been bothered by any of the following problems? 1. Little interest or pleasure in doing things: not at all 2. Feeling down, depressed, or hopeless: not at all 3. Trouble falling or staying asleep, or sleeping too much: not at all 4. Feeling tired or having little energy: not at all 5. Poor appetite or overeating: several days 6. Feeling bad about yourself - or that you are a failure or have let yourself or your family down: not at all 7. Trouble concentrating on things, such as reading the newspaper or watching television: not at all 8. Moving or speaking so slowly that other people could have noticed. Or the opposite - being so fidgety or restless that you have been moving around a lot more than usual: not at all 9. Thoughts that you would be better off or of hurting yourself in some way: not at all Total score: 1 Depression Screening Interpretation: Negative Depression Screening Done: Yes 69848 - PHQ-9 Billing: Yes Source: Developed by Larissa SequeiraW. Henry, Rajan Howard and colleagues, with an educational grover from [employer]. Thrive Questionnaire Date Thrive assessed: 10/04/24 I am a: Patient What is your living situation today?: I have a steady place to live Within the past 12 months, did the food you bought not last and you didn't have the money to get more?: Sometimes True Within the past 12 months, did you worry whether your food would run out before you got money to buy more?: Sometimes True Do you have trouble paying for medicines?: No Do you have trouble getting transportation to medical appointments?: Yes Do you have trouble paying your heating and electricity bill?: Yes Do you have trouble taking care of your child, family member or friend?: Yes Do you have trouble with day-to-day activities such as bathing, preparing meals, shopping, managing finances, etc.?: Yes Are you currently unemployed and looking for a job?: No Are you interested in more education?: No THRIVE Score: 4 SHILA-7 AMB Questionnaire SHILA-7 Date SHILA - 7 assessed: 10/04/24 Feeling nervous, anxious, or on edge: 0 = Not at all Not being able to stop or control worryin = Not at all Worrying too much about different things: 0 = Not at all Trouble relaxin = Not at all Being so restless that it is hard to sit still: 0 = Not at all Becoming easily annoyed or irritable: 0 = Not at all Feeling afraid as if something awful might happen: 0 = Not at all Total SHILA-7 score (0-4 normal; 5-9 mild; 10-14 moderate; 15-21 severe): 0 Source: Developed by Drs. Martin Rubio, Larissa Figueroa, Rajan Howard and colleagues, with an educational grover from [employer]. SHILA-7 Assessment Billing SHILA-7 Assessment Tool: SHILA-7 Assessment 43839 Review of Systems Const Denies chills, Denies fatigue, Denies fever(s), Denies headache(s) and Denies weakness ENT Denies dizziness and Denies headache(s) Card Denies dyspnea Resp Denies cough, Denies dyspnea, Denies wheezing and Denies other (shortness of breath) Musc Denies numbness and Denies tingling Neuro Denies dizziness, Denies headache(s), Denies numbness, Denies tingling and Denies weakness Psych Denies anxiety and Denies depression Endo Denies fatigue Aller/Immun Denies wheezing Physical exam (Primary Care) Vital Signs: Last Vital Signs Temp 98.6 F 10/04/24 10:53 Pulse 91 10/04/24 10:53 Resp 14 10/04/24 10:53 BP 122/64 10/04/24 10:53 Pulse Ox 97 10/04/24 10:53 Oxygen Delivery Method Room Air 10/04/24 10:53 BMI result Body Mass Index 34.7 Tobacco/Smoking Status: Tobacco use Status Tobacco use date assessed 10/04/24 10/04/24 10:49 Patient Tobacco Use Status Former Tobacco user 10/04/24 10:49 Tobacco use type Cigarette 10/04/24 10:49 e-Cigarette/Vaping Use Never Used 10/04/24 10:49 PHQ-9: PHQ-9 Score PHQ-9: Total score 1 10/04/24 10:56 Depression Screening Interpretation: Negative Thrive Assessment: Date of Thrive Assessment Date Thrive assessed 10/04/24 10/04/24 10:56 Const General: well developed; No acute distress Nutritional Appearance: well nourished Orientation/consciousness: patient oriented x3 HENMT Head: Yes normocephalic and Yes atraumatic Eyes General: appearance normal, both eyes and all related structures Pupils: Equal, round and reactive pupils present EOM: EOMs intact bilaterally Resp Effort & Inspection: normal respiratory effort Auscultation: clear to auscultation bilaterally Cardio Rate: regular rate Rhythm: regular rhythm Heart sounds: S1 normal heart sound present, S2 normal heart sound present, no gallops, no murmurs and no rubs Neuro General: patient oriented x3 and gait normal Cranial nerves: Yes Equal, round and reactive pupils present Psych Affect: normal affect Coding Level of Care Code Est Pt Level 4 (84327) Diagnoses Osteoarthritis of left hip M16.12 Status post fall Z91.81 History of DVT (deep vein thrombosis) Z86.718 Secondary hypercoagulability disorder D68.69 Hypothyroidism E03.9 Additional Codes SHILA-7 Assessment Billing - SHILA-7 Assessment Tool: SHILA-7 Assessment 24516 ([id number]) PHQ-9 - 42532 - PHQ-9 Billing: Yes ([id number]) Assessment & Plan Assessment & Plan (1) Osteoarthritis of left hip: Code(s): M16.12 - Unilateral primary osteoarthritis, left hip Category: Medical Plan: Acute?on?chronic?left?hip?pain?after?a?fall. She?is?no?longer?using?additional?pain?medications?prescribed?by?the?hospital. She?is?followed?by?Ortho?and?plan?is?to perform?left?hip?replacement. Follow-up?with?ortho?as?recommended (2) Status post fall: Code(s): Z91.81 - History of falling Category: Medical Plan: Acute?pain?has?resolved. Imaging?revealed?no?fractures?or?acute?injuries (3) History of DVT (deep vein thrombosis): Comment: LLE with secondary hypercoaguable state on eliquis Code(s): Z86.718 - Personal history of other venous thrombosis and embolism Category: Medical Plan: History?of?DVT?and?she?has?been?on?Eliquis. Has?seen?vascular?and?plan?is?to?replace?IVC?filter. She?would?like?to?switch?off?of?Eliquis?to?Xarelto?and?I?have?sent?a?script?toda y. She?was?hoping?to?discontinue?anticoagulation?however ACCP guidelines?recommend?against?this. ?Will?discuss?with?patient?further?at?subsequent?visit (4) Secondary hypercoagulability disorder: Comment: on eliquis, hx of DVT and PE Code(s): D68.69 - Other thrombophilia Category: Medical Plan: As?above (5) Hypothyroidism: Code(s): E03.9 - Hypothyroidism, unspecified Category: Medical Plan: Start Levothyroxine. Recheck?thyroid?hormone?levels?prior?to?next?visit.??Labs?are?ordered. Orders: Orders Comprehensive Met. Panel Today E03.9 - Hypothyroidism, unspecified Free T4 (Free Thyroxine) Today E03.9 - Hypothyroidism, unspecified Triiodothyronine T3 Total Today E03.9 - Hypothyroidism, unspecified Thyroid Stimulating Hormone Today E03.9 - Hypothyroidism, unspecified Medications: New levothyroxine 50 mcg PO DAILY 30 days 30 tabs 3RF rivaroxaban must administer with evening meal 10 mg PO DAILY 90 days 90 tabs 3RF
[2024-10-04 10:53] VITALS: BP 122/64; PULSE 91; RESP 14; TEMP 37; O2SAT 97; BMI 34.7
== END 2024-10-04 11:20 | disposition home or self-care (01) ==
LOC: HO.HMCFM 10:41
PROVIDERS: PCP Family Medicine; Visit Provider Family Medicine
DX: M16.12 Unilateral primary osteoarthritis, left hip (principal); Z91.81 History of falling; Z86.718 Personal history of other venous thrombosis and embolism; D68.69 Other thrombophilia; E03.9 Hypothyroidism, unspecified

== ENCOUNTER → 2024-10-04 10:41 | Outpatient (BNVA) | payer MEDICARE, MEDICAID, SELFPAY | PROVIDERS: PCP Family Medicine; Visit Provider Family Medicine | DX: M16.12 Unilateral primary osteoarthritis, left hip (principal); E03.9 Hypothyroidism, unspecified; D68.69 Other thrombophilia; Z86.718 Personal history of other venous thrombosis and embolism; Z91.81 History of falling | CPT/HCPCS: 96127; 99212 ==

== ENCOUNTER 2024-10-17 07:24 | Day surgery (SDC) | payer MEDICARE, MEDICAID, SELFPAY ==
[2024-10-17] VITALS (17 sets, daily range): BP systolic 109–158; BP diastolic 62–104; PULSE 69–93; RESP 13–22; TEMP 36.4–36.6; O2SAT 95–100; BMI 35.3
[2024-10-17] MEDS: 0.9 % Sodium Chloride 1,000 ML 100 ML IVCONT (08:23)
[2024-10-17 08:25] LABS: MANUAL DIFF FLAG NO
[2024-10-17 08:29] LABS: Basophils Percent Auto 0.8 % (0-2); Eosinophils Absolute Auto 0.1 X10*3/uL (0.0-0.4); Eosinophils Percent Auto 3.9 % (0-4); Hematocrit 36.9 % (37.0-47.0); Hemoglobin 12.3 g/dl (12.0-16.0); Lymphocytes Absolute Auto 0.5 X10*3/uL (1.2-4.9); Lymphocytes Percent Auto 18.4 % (20-40); Mean Corpuscular HGB Conc 33.3 g/dl (31.0-35.0); Mean Corpuscular Hemoglobin 29.7 pg (27.0-33.0); Mean Corpuscular Volume 89.1 fL (80.0-98.0); Mean Platelet Volume 10.1 fL (9.4-12.3); Monocytes Absolute Auto 0.2 X10*3/uL (0.1-1.2); Monocytes Percent Auto 6.3 % (2-11); Neutrophils Absolute Auto 1.8 x10*3/uL (2.0-8.3); Neutrophils Percent Auto 70.6 % (45-73); Red Blood Count 4.14 X10*6/uL (4.20-5.50); Red Cell Distribution Width 15.7 % (11.0-16.0); White Blood Count 2.6 X10*3/uL (4.8-10.8)
[2024-10-17 08:32] LABS: Platelet Count 62 X10*3/uL (160-400)
[2024-10-17 08:38] LABS: Anion Gap 11 (12-20); Blood Urea Nitrogen 13 mg/dL (9-16); Calcium 8.8 mg/dL (8.4-10.2); Carbon Dioxide 24 mmol/L (22-29); Chloride 108 mmol/L (96-108); Creatinine Clr Calc Pharmacy 132.3; Estimated Glomerular Filt Rate > 60; Glucose Random 87 mg/dL (60-115); Potassium 4.4 mmol/L (3.3-5.1); Sodium 139 mmol/L (135-145)
[2024-10-17] MEDS: fentaNYL citrate/PF 100 MCG/2 ML VIAL 25 MCG IVPUSH ×2 (09:57→10:01)
[2024-10-17] MEDS: Midazolam HCl 2 MG/2 ML VIAL 0.5 MG IVPUSH ×2 (09:57→10:00)
--- NOTE | 2024-10-17 10:28 | W.PM.OPN ---
Operative Note Operative Note Date of Service: 10/17/24 Narrative: Angiogram report from [facility] Preoperative diagnosis: Deep venous thrombosis Postoperative diagnosis: Same Procedure: 1. Ultrasound-guided right common femoral vein access 2. Inferior vena cavogram 3. Placement of inferior vena cava filter Surgeon:Raymond Khanna M.D., FACS, RPVI Price Clerk:None Anesthesia: Local with moderate conscious sedation. Total intraservice moderate sedation time was 29 minutes. I monitored the patient's level of consciousness and physiologic status continuously throughout the procedure. Specimens:none Drains:none Estimated blood loss: Less than 10 ml Radiation dose: 211.3 mGy Implant: Bard Ema retrievable vena cava filter Indications: 53-year-old female with prior history of DVT and thrombocytopenia presents for IVC filter placement prophylactically prior to hip surgery per request of Orthopedic surgery. The patient has signed the informed consent after reviewing risks, complications, benefits, and alternatives previously discussed with the patient. The patient was given the opportunity to ask any additional questions or voice any concerns. All questions were answered to the patient's satisfaction. Procedure in detail: Patient was brought to the angiography suite prior to which a time-out was called for patient identification and site verification. Bilateral groins were prepped and draped in the standard surgical fashion. Under ultrasound guidance right common femoral vein was punctured with micro puncture needle and wire. Subsequently a precision 5 [place] sheath was then placed. Glidewire advantage was advanced to the level of the vena cava. Vena cavogram was then undertaken through the 5 [place] sheath. This was a baseline study to define the variant anatomy, caval size, location and number of renal veins, and to evaluate for ileo caval thrombus. Under direct fluoroscopic guidance we exchanged out the 5 [place] sheath for the Bard Carlton sheath. We brought the filter into position. This was then subsequently deployed. The inner cannula was then removed. Through the sheath a hand injection was performed to assess filter position. Once this was accomplished the sheath was then removed, and hemostasis was achieved with 10 minutes of direct compression. No immediate complications occurred and the patient was returned to the recovery suite with no complications Interpretation of films: 1. Ultrasound demonstrates appropriate femoral vein puncture. Image of which was saved. 2. There was no ileal caval thrombus noted 3. There are single renal veins bilaterally and the IVC is normal in caliber. There is no aberrant anatomy. 4. The filter was deployed appropriately and position below the lowest renal vein. Conclusion: 1. Successful placement of Bard Carlton IVC filter 2. Anticoagulation status: Resume regular anticoagulation as indicated 4 hours post filter placement This note is constructed using voice recognition software. While every effort has been made to ensure accuracy, police shift commander errors may have been included. Thank you for allowing me to participate in the care of your patient. Yours sincerely, Raymond Khanna MD, FACS, R.P.V.I.
== END 2024-10-17 12:39 | disposition home or self-care (01) ==
PROVIDERS: PCP Family Medicine; Visit Provider Surgery Vascular Surgery
DX: Z45.2 Encounter for adjustment and management of vascular access device (principal); Z86.718 Personal history of other venous thrombosis and embolism; Z86.711 Personal history of pulmonary embolism; D69.6 Thrombocytopenia, unspecified; Z79.01 Long term (current) use of anticoagulants; K74.60 Unspecified cirrhosis of liver; Z86.19 Personal history of other infectious and parasitic diseases; F11.20 Opioid dependence, uncomplicated
CPT/HCPCS: 36415; 37191; 80048; 85025; 99152; 99153; C1769; C1880; C1894; J1644; J2250; J3010; Q9967

== ENCOUNTER → 2024-10-17 07:24 | Outpatient (BNV) | payer MEDICARE, MEDICAID, SELFPAY | PROVIDERS: PCP Family Medicine; Visit Provider Surgery Vascular Surgery | DX: Z86.718 Personal history of other venous thrombosis and embolism (principal); Z01.818 Encounter for other preprocedural examination | CPT/HCPCS: 37191 ==

== ENCOUNTER 2024-11-02 08:59 | Outpatient (AMB) | payer MEDICARE, MEDICAID, SELFPAY ==
--- NOTE | 2024-11-02 09:04 | A.OFFVIS_ITS ---
Vital Signs 11/02/24 09:05 Height 6 ft BMI Reason not done Patient refused/unable BP 124/59 L Blood Pressure Location Lt brachial Position Sitting Pulse 81 Intake Visit Reasons: [place] screening, positive cologuard. Intake Note: Francisco presents in the office as a new patient for a colonoscopy screening due to positive cologuard. CC: She states that she has constipation and diarrhea - she states that she has black and sometimes bloody stools. Sometime she states that she has 2 day BMs an d bloating in the abdomen. She states that the BMs are the worst part and very not regulated. States that her last bowel movement was over 5 days ago. 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: No Allergies No Known Allergies Allergy (Verified 11/02/24 09:08) Medication List - Last Reconciled 11/02/24 by Violeta Pike CNP albuterol sulfate 90 mcg/actuation (Ventolin HFA) 2 puffs inhalation Q4-6H PRN 30 days bisacodyl 5 mg PO ONCE 1 day bupropion HCl XL (Wellbutrin XL) 300 mg PO QAM 30 days cholecalciferol (vitamin D3) 125 mcg PO DAILY ergocalciferol (vitamin D2) 50 mcg PO DAILY gabapentin 400 mg PO TID levothyroxine 50 mcg PO DAILY 30 days methadone 100 mg PO 6XD polyethylene glycol 3350 (Miralax) 238 grams PO ONCE rivaroxaban 10 mg PO DAILY 90 days [Seated walker As directed] HPI HPI [place] screening, positive cologuard.: Details: Patient is a 53-year-old female with PMH of hx of DVT on Xarelto, hypothyroidism, COPD, SHILA, MDD, OA and obesity. Referred by PCP for positive Cologuard. She represent today, accompanied by her ; for positive Cologuard result for CRC screening from 08/2023. Shares over past year, developed worsening constipation with current BM frequency ~1/week; most recent BM >7d ago. Stool consistency variable (small/hard, occasionally soft), stools reportedly blond to black, minimal in volume. Reports blood stains in underwear but unable to determine if source is vaginal or rectal, denies narciso rectal bleeding with BM o r on tissue. Endorses persistent bloating, abdominal discomfort, and straining (though tries to minimize effort). Appetite decreased, likely coinciding with recent initiation of hypothyroid medication (levothyroxine started several weeks ago). Reports intermittent regurgitation of food particles (?a few times a week? x ~6 mo), unrelated to specific triggers; denies heartburn or dysphagia. Denies N/V, ; able to pass flatus. Mood affected by reduced mobility (depressive sx). Long h/o limited mobility d/t advanced hip OA;wheelchair-dependent, awaiting hip replacement. Reports asthma as stable, rare inhaler use. Recent filter placement (IVC) after h/o DVT; on Xarelto SOCIAL HISTORY - Diet: Regular meals; eggs/toast for breakfast, chicken/pasta/corn/vegetables for dinner. High fruit intake (grapes, bananas, oranges, smoothies). Vegetables typically corn; minimal green leafy/fiber-rich veggies. Uses low-calorie snacks (e.g., Fudgsicles). Drinks water ?lots?. - Alcohol: Denies - Tobacco: Hx cigarette smoking, quit Mar 2024 - Drugs: Denies rec. drug use incl. marijuana - Occupation: Not working; bedbound, wheelchair-dependent due to hip OA - family hx as below -denies personal hx of CA -denies significant cardiopulmonary history -tolerated anesthesia in the past without difficulty. [facility] Medical History (Updated 11/02/24 @ 10:27 by Violeta Pike CNP) Constipation Regurgitation of stomach contents PAD (peripheral artery disease) Personal history of nicotine dependence History of hepatitis C Cirrhosis of liver History of DVT (deep vein thrombosis) History of pulmonary embolism Secondary hypercoagulability disorder COPD (chronic obstructive pulmonary disease) Asthma Thrombocytopenia Borderline personality disorder Depression Anxiety Night terrors, adult Surgical History History of appendectomy History of ankle surgery History of cholecystectomy History of hysterectomy Family History (Updated 11/02/24 @ 09:26 by Violeta Pike CNP) Mother Cancer Maternal Grandmother Cancer Maternal Aunt Cancer Social History Household Members: Spouse Housing: House Alcohol intake: former Patient Tobacco Use Status: Current everyday Tobacco user Tobacco use type: Smokeless Tobacco Years Smoked: (onset 12yo, 1ppd x 41yrs, 40pyh - quit 02/2024) e-Cigarette/Vaping Use: Currently Using Substance Use Type: Marijuana service: No Current occupational status: disabled Current occupation: Borderline personality disorder Current occupational exposures/hazards: No Sexual orientation: Unable to collect Gender identity: Unable to collect Cognitive needs: No Hearing needs: No Vision needs: Yes (wears contacts) Review of Systems Const Reports as per HPI ENT Reports as per HPI Card Reports as per HPI Resp Reports as per HPI GI Reports as per HPI Reports as per HPI Musc Reports as per HPI Physical Exam Vital Signs: Last Vital Signs Pulse 81 11/02/24 09:05 BP 124/59 L 11/02/24 09:05 Const General: healthy appearing, no acute distress and well developed Nutritional Appearance: obese Orientation/consciousness: patient oriented x3 HEENT Head: Yes normal to inspection, Yes normocephalic and Yes atraumatic Face and sinus: Yes normal facial exam Eyes General: appearance normal, both eyes and all related structures Neck Neck: Yes normal visual inspection Resp Effort & Inspection: normal respiratory effort, able to speak in complete sentences, no tracheal deviation and symmetric chest movement Auscultation: clear to auscultation bilaterally Cardio Jugular venous distension: no JVD Rate: regular rate Rhythm: regular rhythm Heart sounds: S1 normal heart sound present, S2 normal heart sound present, no g allops and no murmurs GI Inspection: Yes normal to inspection, No distended and Yes obesity Palpation (GI): Soft to palpation, not firm, nontender and No hepatosplenomegaly present Auscultation: Hypoactive bowel sounds present Neuro General: patient oriented x3 Gait exam (Neuro): Normal gait present and Assistive device used (w/c ) Psych Appearance: grossly normal Mental Status: mental status grossly normal Speech and movement: Normal speech and movement present Affect: normal affect Attitude: cooperative Thought process: Normal thought process present Thought content: Normal thought content present Insight: Good insight present (Psych) Judgement: Good judgement present (Psych) Assessment & Plan Assessment & Plan (1) Hypothyroidism: Code(s): E03.9 - Hypothyroidism, unspecified Category: Medical Qualifiers: Hypothyroidism type: unspecified Qualified Code(s): E03.9 - Hypothyroidism, unspecified Plan: Counselled on importance of repeating thyroid labs 8 wks after levothyroxine initiation for titration (do not delay to Jan) (2) Osteoarthritis of left hip: Code(s): M16.12 - Unilateral primary osteoarthritis, left hip Category: Medical Qualifiers: Osteoarthritis type: unspecified Qualified Code(s): M16.12 - Unilateral primary osteoarthritis, left hip Plan: Chronic severe OA?pending hip replacement; functional impact Additional Tests: - Ortho management of hip OA Medications: - Tylenol preferred for pain; avoid NSAIDs due to anticoag Lifestyle Modifications: - Maximize mobility as feasible; PT after hip replacement Follow-Up: - Ortho as per surgical planning (3) Positive colorectal cancer screening using Cologuard test: Code(s): R19.5 - Other fecal abnormalities Category: Medical Plan: Positive Cologuard?f/u for CRC risk and need for diagnostic colonoscopy Blood in underwear?source unclear; 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 Medications: - Xarelto will need to be hold prior to procedure. - Use Tylenol if needed for pain. Patient educated on procedure preparation, including avoiding certain foods and ensuring clear liquid intake. Advised on necessity for ride post-procedure due to sedation. Follow-Up: - Primary care f/u for Pap/mammo; report new/worsening bleeding to GI (4) Regurgitation of stomach contents: Code(s): R11.10 - Vomiting, unspecified Category: Medical Plan: Intermittent regurgitation of undigested food?possible mild esophageal dysmotility or reflux Additional Tests: - will proceed with EGD to complete at time of colonoscopy Lifestyle Modifications: - Symptom diary; avoid late meals, identify potential triggers (5) Constipation: Code(s): K59.00 - Constipation, unspecified Category: Medical Qualifiers: Constipation type: other constipation type Qualified Code(s): K59.09 - Other constipation Plan: Severe/chronic constipation, likely multifactorial (medications?methadone, hypothyroidism, limited mobility, low fiber intake) Additional Tests: - Colonoscopy (screening) - Monitor for obstructive sx (N/V, no flatus, severe pain) Medications: - Polyethylene glycol oral daily - Senna + Docusate sodium oral HS -If stools become loose or frequency increases excessively, hold Senna/docusate for 24h and reassess; may continue Miralax alone. -Adjust dosing based on stool consistency and frequency; resume/add Senna/docusate if constipation recurs. Lifestyle Modifications: - Gradually increase fiber (leafy greens, beans, nuts/seeds as tolerated) - Maintain high water intake - Mobility rehab as permitted after hip sx Follow-Up: - Consider formal GI motility workup if severe constipation persists post-c olonoscopy/medical optimization Plan Shared decision making to follow up after endoscopy or sooner as needed Time: I spent a total of 40 minutes on the date of encounter which includes: Preparing to see the patient (reviewed previous documentation, test results and medical history) Performing a medically appropriate exam and/or evaluation Ordering medications, tests, and procedures Documenting clinical information in the health record Medications: New sennosides-docusate sodium 8.6-50 mg (Senna Plus) Take two tablets at bedtime 2 tab-caps (2 x 8.6-50 mg) PO BEDTIME 180 caps 1RF bisacodyl Take four tablets once for 1 day per colonoscopy instructions 5 mg PO ONCE 1 day 4 tabs 0RF polyethylene glycol 3350 (Miralax) per colonoscopy prep instructions 238 grams PO ONCE 238 grams 0RF polyethylene glycol 3350 (Miralax) Mix 17G in 4 to 8 oz of water until dissolved and drink immediately 17 grams PO DAILY 100 ea 1RF Coding Level of Care Code New Pt New Pt Level 5 (93879) Patient Type New Diagnoses Hypothyroidism, unspecified type E03.9 Hypothyroidism type: unspecified Osteoarthritis of left hip, unspecified osteoarthritis type M16.12 Osteoarthritis type: unspecified Positive colorectal cancer screening using Cologuard test R19.5 Regurgitation of stomach contents R11.10 Other constipation K59.09 Constipation type: other constipation type
[2024-11-02 09:05] VITALS: BP 124/59; PULSE 81
== END 2024-11-02 09:44 | disposition home or self-care (01) ==
LOC: HO.HGI 09:00
PROVIDERS: PCP Family Medicine; Visit Provider Nurse Practitioner Family
DX: R19.5 Other fecal abnormalities (principal); R11.10 Vomiting, unspecified; K59.09 Other constipation; E03.9 Hypothyroidism, unspecified; M16.12 Unilateral primary osteoarthritis, left hip
CPT/HCPCS: 99204

== ENCOUNTER → 2024-11-02 08:59 | Outpatient (BNVA) | payer MEDICARE, MEDICAID, SELFPAY | PROVIDERS: PCP Family Medicine; Visit Provider Nurse Practitioner Family | DX: E03.9 Hypothyroidism, unspecified (principal); M16.12 Unilateral primary osteoarthritis, left hip; R19.5 Other fecal abnormalities; R11.10 Vomiting, unspecified; K59.09 Other constipation | CPT/HCPCS: 99202 ==

== ENCOUNTER 2025-01-24 07:15 | Day surgery (SDC) | payer MEDICARE, MEDICAID, SELFPAY ==
--- NOTE | 2025-01-23 09:18 | HO.ANESPROP2 ---
HPI - Anesthesia Eval Consult details Narrative: 54 yr old female for upper endoscopy, colonoscopy Hep C with moderate liver cirrhosis Thrombocytopenia H/O drug abuse: on methadone PMFSH Active Problems Active Problems: All Active Problems Constipation (Acute) Regurgitation of stomach contents (Acute) Hypothyroidism (Acute) Status post fall (Acute) Personal history of nicotine dependence (Acute) Osteoarthritis of left hip (Acute) Substance abuse (Acute) Nausea (Acute) Altered mental status (Acute) Lower extremity weakness (Acute) Positive colorectal cancer screening using Cologuard test (Acute) Nicotine dependence, cigarettes, uncomplicated (Acute) Menopause (Acute) COPD (chronic obstructive pulmonary disease) (Acute) Borderline personality disorder (Acute) SHILA (generalized anxiety disorder) (Acute) MDD (major depressive disorder), recurrent episode (Acute) Class 1 obesity with serious comorbidity and body mass index (BMI) of 32.0 to 32.9 in adult (Acute) BMI 32.0-32.9,adult (Acute) Influenza vaccination declined (Acute) Need for Tdap vaccination (Acute) Decreased pulses in feet (Acute) Vitamin D deficiency (Acute) Elevated TSH (Acute) Left hip pain (Acute) Secondary hypercoagulability disorder (Acute) Hip pain (Acute) History of DVT (deep vein thrombosis) (Acute) History of pulmonary embolism (Acute) Fatigue (Acute) Pulmonary nodules (Acute) Cirrhosis of liver (Acute) Thrombocytopenia (Acute) History of hepatitis C (Acute) History of intravenous drug abuse (Acute) Past Medical History Medical History (Updated 11/02/24 @ 10:27 by Violeta Pike CNP) Constipation Regurgitation of stomach contents PAD (peripheral artery disease) Personal history of nicotine dependence History of hepatitis C Cirrhosis of liver History of DVT (deep vein thrombosis) History of pulmonary embolism Secondary hypercoagulability disorder COPD (chronic obstructive pulmonary disease) Asthma Thrombocytopenia Borderline personality disorder Depression Anxiety Night terrors, adult Family History Family History (Updated 11/02/24 @ 09:26 by Violeta Pike CNP) Mother Cancer Maternal Grandmother Cancer Maternal Aunt Cancer Surgical History Surgical History History of appendectomy History of ankle surgery History of cholecystectomy History of hysterectomy Social History Social History Household Members: Spouse Housing: House Alcohol intake: former Patient Tobacco Use Status: Current everyday Tobacco user Tobacco use type: Smokeless Tobacco Years Smoked: (onset 12yo, 1ppd x 41yrs, 40pyh - quit 02/2024) e-Cigarette/Vaping Use: Currently Using Substance Use Type: Marijuana service: No Current occupational status: disabled Current occupation: Borderline personality disorder Current occupational exposures/hazards: No Sexual orientation: Unable to collect Gender identity: Unable to collect Cognitive needs: No Hearing needs: No Vision needs: Yes (wears contacts) Meds Allergies Allergy/AdvReac Type Severity Reaction Status Date / Time No Known Allergies Allergy Verified 11/02/24 09:08 Home Medications ?Medication ?Instructions ?Recorded ?Confirmed ?Last Taken ?Type methadone 10 mg/mL oral concentrate 100 mg PO 6XD 04/15/23 11/02/24 Unknown History ergocalciferol (vitamin D2) 50 mcg 50 mcg PO DAILY 05/31/24 11/02/24 Unknown History (2,000 unit) capsule Exam Pertinent Lab Results Pertinent Lab Results: Laboratory Tests 10/17/24 08:19 WBC 2.6 L RBC 4.14 L Hgb 12.3 Hct 36.9 L Plt Count 62 L Sodium 139 Potassium 4.4 BUN 13 Creatinine 0.69
[2025-01-24 07:36] VITALS: BMI 30.4
--- NOTE | 2025-01-24 07:58 | MHC.SHP ---
Pre-Procedural Eval Section A - 24 Hr Update-Section A only Date of Service: 01/24/25 Section B - Complete if H&P > 30 days Chief Complaint: cirrhosis, pos cologuard Details of Present Illness: Constipation Regurgitation of stomach contents PAD (peripheral artery disease) Personal history of nicotine dependence History of hepatitis C Cirrhosis of liver History of DVT (deep vein thrombosis) History of pulmonary embolism Secondary hypercoagulability disorder COPD (chronic obstructive pulmonary disease) Asthma Thrombocytopenia Borderline personality disorder Depression Anxiety Night terrors, adult Surgical History History of appendectomy History of ankle surgery History of cholecystectomy History of hysterectomy Allergies: Allergies Allergy/AdvReac Type Severity Reaction Status Date / Time No Known Allergies Allergy Verified 11/02/24 09:08 Review of Systems Review of Systems Comment: Ten point ROS negative Exam Exam Comment: Gen appear: No acute distress HEENT: no icterus Chest: No overt resp distress Abd: soft, nontender, nondistended Psych: Stable affect, answering questions appropriately Neuro: A/Ox3 reports severe pain in L hip but able to move this independently Ext: no peripheral edema Plan Diagnosis/Plan: Unchanged I have reviewed the history and physical and performed a pertinent physical examination on my patient. No changes have occurred unless specified. Time Spent With Patient Time: Total time managing care of this patient today ____ minutes.
[2025-01-24 08:00] VITALS: BP 146/101; PULSE 75; RESP 18; TEMP 36.6; O2SAT 97
[2025-01-24 08:00] LABS: Hematocrit 35.9 % (37.0-47.0); Hemoglobin 12.1 g/dl (12.0-16.0); Mean Corpuscular HGB Conc 33.7 g/dl (31.0-35.0); Mean Corpuscular Hemoglobin 30.8 pg (27.0-33.0); Mean Corpuscular Volume 91.3 fL (80.0-98.0); NRBC Abs Auto 0.000 X10*3/uL (0.0-0.012); NRBC Pct Auto 0.0 /100WBC (0.0-0.2); Red Blood Count 3.93 X10*6/uL (4.20-5.50); White Blood Count 2.9 X10*3/uL (4.8-10.8)
[2025-01-24 08:08] LABS: Platelet Count 68 X10*3/uL (160-400)
[2025-01-24] MEDS: Lactated Ringers 1,000 ML 100 ML IVCONT (08:09)
[2025-01-24 08:13] LABS: Anion Gap 8 (12-20); Carbon Dioxide 26 mmol/L (22-29); Chloride 107 mmol/L (96-108); Potassium 4.0 mmol/L (3.3-5.1); Sodium 137 mmol/L (135-145)
[2025-01-24 08:19] VITALS: BP 166/92
--- NOTE | 2025-01-24 08:26 | P.CONAN_ITS ---
FORM[facility], [facility] Active Problems Active Problems: All Active Problems (Updated 11/02/24 @ 10:27 by Violeta Pike CNP) Constipation (Acute) Regurgitation of stomach contents (Acute) Hypothyroidism (Acute) Status post fall (Acute) Personal history of nicotine dependence (Acute) Osteoarthritis of left hip (Acute) Substance abuse (Acute) Nausea (Acute) Altered mental status (Acute) Lower extremity weakness (Acute) Positive colorectal cancer screening using Cologuard test (Acute) Nicotine dependence, cigarettes, uncomplicated (Acute) Menopause (Acute) COPD (chronic obstructive pulmonary disease) (Acute) Borderline personality disorder (Acute) SHILA (generalized anxiety disorder) (Acute) MDD (major depressive disorder), recurrent episode (Acute) Class 1 obesity with serious comorbidity and body mass index (BMI) of 32.0 to 32.9 in adult (Acute) BMI 32.0-32.9,adult (Acute) Influenza vaccination declined (Acute) Need for Tdap vaccination (Acute) Decreased pulses in feet (Acute) Vitamin D deficiency (Acute) Elevated TSH (Acute) Left hip pain (Acute) Secondary hypercoagulability disorder (Acute) Hip pain (Acute) History of DVT (deep vein thrombosis) (Acute) History of pulmonary embolism (Acute) Fatigue (Acute) Pulmonary nodules (Acute) Cirrhosis of liver (Acute) Thrombocytopenia (Acute) History of hepatitis C (Acute) History of intravenous drug abuse (Acute) Past Medical History Medical History Constipation Regurgitation of stomach contents PAD (peripheral artery disease) Personal history of nicotine dependence History of hepatitis C Cirrhosis of liver History of DVT (deep vein thrombosis) History of pulmonary embolism Secondary hypercoagulability disorder COPD (chronic obstructive pulmonary disease) Asthma Thrombocytopenia Borderline personality disorder Depression Anxiety Night terrors, adult Functional capacity: independent ambulation Patient : No Family History Family History Mother Cancer Maternal Grandmother Cancer Maternal Aunt Cancer Family history of problems with anesthesia: No Surgical History Surgical History History of appendectomy History of ankle surgery History of cholecystectomy History of hysterectomy History of Problems with Anesthesia: No Social History Social History Household Members: Spouse Household Members Other:: father in law Housing: House Are you a primary day care center director to a significant other at home: No Do you presently have visiting nurse or other home services: No Alcohol intake: former Patient Tobacco Use Status: Former Tobacco user Tobacco use type: Smokeless Tobacco Years Smoked: (onset 12yo, 1ppd x 41yrs, 40pyh - quit 02/2024) e-Cigarette/Vaping Use: Currently Using Substance Use Type: Marijuana Have you been hit, kicked, punched, or otherwise hurt by someone within the past year? If so, by whom?: No Are you DNR?: No Advance Directives: No Advance Directives Information Provided: Yes Poor oral hygiene: Yes service: No Current occupational status: disabled Current occupation: Borderline personality disorder Current occupational exposures/hazards: No Sexual orientation: Unable to collect Gender identity: Unable to collect Cognitive needs: No Hearing needs: No Vision needs: Yes (wears contacts) Meds Allergies Allergy/AdvReac Type Severity Reaction Status Date / Time No Known Allergies Allergy Verified 01/24/25 08:03 Active Medications: Current Medications Lactated Ringer's (Lr) 1,000 mls @ 100 mls/hr IVCONT .Q10H PIPO Last Admin: 01/24/25 08:09 Dose: 100 mls/hr Home Medications ?Medication ?Instructions ?Recorded ?Confirmed ?Last Taken ?Type methadone 10 mg/mL oral concentrate 100 mg PO 6XD 03/3001/24/25 Unknown History ergocalciferol (vitamin D2) 50 mcg 50 mcg PO DAILY 07/2401/24/25 Unknown History (2,000 unit) capsule Exam Height,Weight and Vital Signs: Height 6 ft Weight 101.605 kg Last Vital Signs Temp 97.9 F 01/24/25 08:00 Pulse 75 01/24/25 08:00 Resp 18 01/24/25 08:00 BP 166/92 H 01/24/25 08:19 Pulse Ox 97 01/24/25 08:00 O2 Del Method Room Air 01/24/25 08:00 Pertinent Lab Results Pertinent Lab Results: Laboratory Tests 01/24/25 07:53 WBC 2.9 L RBC 3.93 L Hgb 12.1 Hct 35.9 L MCV 91.3 MCH 30.8 MCHC 33.7 RDW 15.3 Plt Count 68 L MPV 9.7 Absolute Nucleated RBC 0.000 Nucleated RBC % (auto) 0.0 Sodium 137 Potassium 4.0 Chloride 107 Carbon Dioxide 26 Anion Gap 8 L Assessment and Plan Assessment Anesthesia Assessment: Anesthesia Plan Discussed and Smoking Cess. Discussed Final Anesthetic Review Family History of Problems with Anesthesia: No History of Problems with Anesthesia: No NPO: Yes ASA Class: III Final Preanesthetic Review: Meds/Allgs Chart Reviewed, Consent Obtained/Reviewed and Anes Risks/Benef Reviewed Patient Risk: Intermediate Procedure Risk: Low Anesthetic Plan Anesthetic Plan: MAC: Disposition: Standard PACU
--- NOTE | 2025-01-24 08:40 | PC.NURSE ---
dr. mccain aware of lab results. ok to proceed.
[2025-01-24 08:45] LABS: INTERNATIONAL NORM RATIO 1.2 (0.9-1.1); Prothrombin Time 14.2 SEC (10.9-12.4)
--- NOTE | 2025-01-24 09:16 | P.OPN-COLO_ITS ---
Colonoscopy Operative Note Operative Note Date of Service: 01/24/25 Narrative: Procedure: Upper endoscopy and colonoscopy Indication: Cirrhosis, positive cologuard Endoscopist: Jaylin Calero MD Anesthesia Provider: Dr Betet Ruiz Anesthesia type: MAC Instrument: [id number] and [id number] EGD Procedure:?? The procedure, indications, preparation and potential complications were reviewed with the patient, who indicated understanding and gave written informed consent to proceed. The endoscope was introduced through the mouth, and advanced to the 2nd part of the duodenum. The mucosa was carefully examined on slow withdrawal of the endoscope. The patient tolerated the procedure well. There were no immediate complications.? EGD Findings:? * Esophagus:? Normal esophageal mucosa was noted. The Z-line was at 40 cm. At least 2 cords of medium sized esophageal varices were ntoed in the lower esophagus without high risk stigmata. * Stomach:? Erythema in a mosaic pattern consistent with portal hypertensive gastropathy. Retroflexion was performed in the cardia that did not reveal any fundal varices. There was a 5 mm healing ulcer in the pylorus at 11 o clock. Cold forceps biopsies were taken from the stomach body and antrum. * Duodenum:? Congestion and edema noted throughout the duodenum consistent with portal hypertensive duodenopathy. Colonoscopy Procedure:? The patient was then turned for the colonoscopy. A digital rectal exam was performed which was abnormal for prolapsed hemorrhoids.? A distal attachment cap was affixed to the tip of the scope and the colonoscope was then inserted through the anus and advanced through the rectum to distal sigmoid colon. The procedure had to be aborted due to extensive solid stool throughout the extent examined. Limitations: Poor prep Findings: Mucosa: Solid stool in rectum and distal sigmoid colon. Procedure terminated. Impression: 1. Esophageal varices 2. Portal hypertensive gastropathy (biopsy) 3. Healing antral ulcer 4. Portal hypertensive duodenopathy 5. Poor prep 6. Internal and external hemorrhoids Recommendations:?? * Follow-up path results * Avoid NSAIDs * Start carvedilol 3.125 mg BID for variceal prophylaxis. This is to be uptitrated to 6.25 BID as long as HR and BP permits. * Start omeprazole 20 mg once daily x 8-12 weeks * Repeat colonoscopy for pos cologuard and anemia to be set up within a few weeks.
[2025-01-24 09:28] VITALS: BP 145/89; PULSE 93; RESP 16; TEMP 37; O2SAT 96
[2025-01-24 09:30] VITALS: BP 137/90; PULSE 99; RESP 16; O2SAT 96
[2025-01-24 09:45] VITALS: BP 160/82; PULSE 82; RESP 16; O2SAT 97
--- NOTE | 2025-01-24 11:36 | HO.POSTANES ---
Post Anesthesia Evaluation Post Anesthesia Evaluation Date of Service: 01/24/25 Vital Signs: Vital Signs Temp Pulse Resp BP Pulse Ox O2 Del Method 01/24/25 09:45 82 16 160/82 H 97 Room Air 01/24/25 09:30 99 16 137/90 H 96 Room Air 01/24/25 09:28 98.6 F 93 16 145/89 H 96 Room Air 01/24/25 08:19 166/92 H 01/24/25 08:00 97.9 F 75 18 146/101 H 97 Room Air Anesthesia: Monitored Mental Status: Awake Pain Control: Satisfactory Nausea/Vomiting: None Hydration: Adequate Anesthesia-Related Issues: No Anes. Related Issues
== END 2025-01-24 11:54 | disposition home or self-care (01) ==
PROVIDERS: Nurse Practitioner; PCP Family Medicine; Visit Provider Internal Medicine
PROC: (CPT 43239; principal; 2025-01-24 08:30)
DX: R19.5 Other fecal abnormalities (principal); K64.8 Other hemorrhoids; K64.4 Residual hemorrhoidal skin tags; Z91.199 Patient's noncompliance with other medical treatment and regimen due to unspecified reason; K21.9 Gastro-esophageal reflux disease without esophagitis; K76.6 Portal hypertension; K74.69 Other cirrhosis of liver; I85.10 Secondary esophageal varices without bleeding; K29.60 Other gastritis without bleeding; B19.20 Unspecified viral hepatitis C without hepatic coma; E03.9 Hypothyroidism, unspecified; F17.200 Nicotine dependence, unspecified, uncomplicated; F11.20 Opioid dependence, uncomplicated; F17.210 Nicotine dependence, cigarettes, uncomplicated; Z86.718 Personal history of other venous thrombosis and embolism; Z86.711 Personal history of pulmonary embolism; Z86.19 Personal history of other infectious and parasitic diseases; Z79.01 Long term (current) use of anticoagulants; Z79.899 Other long term (current) drug therapy
CPT/HCPCS: 43239; G0121; 36415; 80051; 85027; 85610; 88305; 88313; 88342; J2003; J2704

== ENCOUNTER → 2025-01-24 07:15 | Outpatient (BNV) | payer MEDICARE, MEDICAID, SELFPAY | PROVIDERS: PCP Family Medicine; Visit Provider Internal Medicine | DX: Z12.11 Encounter for screening for malignant neoplasm of colon (principal); R19.5 Other fecal abnormalities; Z91.199 Patient's noncompliance with other medical treatment and regimen due to unspecified reason; K74.60 Unspecified cirrhosis of liver; I85.00 Esophageal varices without bleeding; K76.6 Portal hypertension; K31.89 Other diseases of stomach and duodenum | CPT/HCPCS: 43239; 45378 ==